=== PATIENT | female | born 1930 | race Two or more races ===

== ENCOUNTER 2016-10-03 09:47 | Inpatient (IN) | payer MEDICARE, MEDICAID ==
[~2016-10-03] VITALS: Ht 162.6 cm; Wt 90.7 kg
[2016-10-03 10:43] LABS: BASOPHILS % (AUTO) 1.6 % (0.0-2.0); LYMPHOCYTES % (AUTO) 22.1 % (20.0-45.0); MEAN CORPUSCULAR HEMOGLOBIN 27.9 PG (27.0-31.0); MEAN CORPUSCULAR HGB CONC 31.8 G/DL (32.0-36.0); MEAN CORPUSCULAR VOLUME 88 FL (80-99); MEAN PLATELET VOLUME 5.9 FL (6.5-10.1); MONOCYTES % (AUTO) 8.5 % (1.0-10.0); NEUTROPHILS % (AUTO) 60.9 % (45.0-75.0); PLATELET COUNT 369 K/UL (150-450); RED BLOOD COUNT 4.66 M/UL (4.20-5.40); RED CELL DISTRIBUTION WIDTH 12.4 % (11.6-14.8); WHITE BLOOD COUNT 8.2 K/UL (4.8-10.8)
[2016-10-03 10:57] LABS: ALANINE AMINOTRANSFERASE 13 U/L (3-33); ALBUMIN/GLOBULIN RATIO 0.8 (1.0-2.7); ANION GAP 14 (5-15); ASPARTATE AMINO TRANSFERASE 20 U/L (5-40); CALCIUM 9.2 mg/dL (8.6-10.2); CARBON DIOXIDE 27 mEQ/L (20-30); CHLORIDE 96 mEQ/L (98-107); CREATININE 1.6 mg/dL (0.5-0.9); HEMOLYSIS 7; POTASSIUM 4.2 mEQ/L (3.4-4.9); SODIUM 137 mEQ/L (135-145); TOTAL PROTEIN 7.4 g/dL (6.6-8.7)
--- NOTE | 2016-10-03 11:01 | Diagnostic Imaging Report ---
Indication: SOB Technique: One view of the chest Comparison: none Findings: There is some opacity in the left lung base, may indicate infiltrate, pleural fluid, or combination of both. The heart is enlarged. The remainder the lungs and pleural spaces are clear. Impression: Suspect left basilar opacity, possibly infiltrate, pleural fluid, or combination of both. Correlate with clinical findings Cardiomegaly
[2016-10-03] MEDS ORDERED: CATAPRES0.1 MG ORAL (11:03)
[2016-10-03] MEDS ORDERED: ATORVASTATIN CA10 MG ORAL (11:03)
[2016-10-03] MEDS ORDERED: ASPIR 8181 MG ORAL (11:03)
[2016-10-03] MEDS ORDERED: ACTOS15 MG ORAL (11:03)
[2016-10-03] MEDS ORDERED: CRANBERRY450 M4 PO (11:03)
[2016-10-03] MEDS ORDERED: DULCOLAX10 MG RC ×2 (11:03)
[2016-10-03] MEDS ORDERED: COLACE100 MG ORAL (11:03)
[2016-10-03] MEDS ORDERED: DONEPEZIL HCL10 M2 ORAL (11:03)
[2016-10-03] MEDS ORDERED: CLONIDINE1 EAC1 TD (11:03)
[2016-10-03 11:07] LABS: CKMB < 1.5 ng/mL (< 3.8)
[2016-10-03] MEDS ORDERED: PLAVIX75 MG ORAL (11:27)
[2016-10-03] MEDS ORDERED: MILK OF MA400 MG/51 ORAL (11:27)
[2016-10-03] MEDS ORDERED: NORVASC10 MG ORAL (11:27)
[2016-10-03] MEDS ORDERED: FLEET ENEMA133 M1 RC (11:27)
[2016-10-03] MEDS ORDERED: ALUM-MAG HYDRO360 ML PO (11:27)
[2016-10-03] MEDS ORDERED: TRAMADOL HCL100 M2 ORAL (11:27)
[2016-10-03] MEDS ORDERED: MULTIVITAMINS1 EAC2 ORAL (11:27)
[2016-10-03] MEDS ORDERED: OLANZAPINE2.5 MG ORAL (11:27)
[2016-10-03] MEDS ORDERED: GLIPIZIDE10 MG PO (11:27)
[2016-10-03] MEDS ORDERED: CALCIUM 250+D1 EACH PO (11:27)
[2016-10-03] MEDS ORDERED: LEVEMIR FL100 UNIT/1 SUBQ (11:27)
[2016-10-03 11:34] VITALS: BP 151/102
[2016-10-03 12:30] VITALS: BP 135/114
[2016-10-03 13:01] VITALS: BP 125/98
--- NOTE | 2016-10-03 13:02 | Emergency Room Report ---
History of Present Illness General Chief Complaint: Lower Extremity Injury Source: Medical Record, EMS, PMD Present Illness HPI [id number] sent for "blue discoloration of left big toe." Unknown trauma. Alzheimers , patient not contributing to HPI. PMD Dr Mueller concerned for DVT. Allergies: Coded Allergies: No Known Allergies (Unverified , 10/03/16) Patient History Past Medical History: dementia Past Surgical History: none Pertinent Family History: none Social History: Denies: alcohol use, drug use, smoking Last Menstrual Period: na Now: No Immunizations: UTD Reviewed Nursing Documentation: PMH: Agreed, PSxH: Agreed Nursing Documentation-PMH Past Medical History: No History, Except For Hx Diabetes: Yes History Of Psychiatric Problem: Yes - paranoid schizophrenia Review of Systems All Other Systems: limited - Alzheimers, patient non contributory Physical Exam Vital Signs Date Time Temp Pulse Resp B/P Pulse Ox O2 Delivery O2 Flow Rate FiO2 10/03/16 09:57 98.2 101 16 126/72 98 Room Air Sp02 EP Interpretation: reviewed, abnormal General Appearance: normal inspection, well appearing, no apparent distress, alert, GCS 15, non-toxic Head: normocephalic, atraumatic Eyes: bilateral eye EOMI, bilateral eye PERRL ENT: normal ENT inspection, hearing grossly normal, normal voice Neck: normal inspection, full range of motion, supple, no bony tend Respiratory: normal inspection, lungs clear, normal breath sounds, no respiratory distress, no retraction, no wheezing Cardiovascular #1: regular rate, rhythm, no edema Gastrointestinal: normal inspection, normal bowel sounds, non tender, soft, no guarding, no hernia Genitourinary: no CVA tenderness Musculoskeletal: normal inspection, back normal, normal range of motion, Murray' s Sign negative Neurologic: normal inspection, alert, responsive, speech normal Psychiatric: normal inspection, judgement/insight normal, mood/affect normal Skin: other - left foot: areas of abrasions to right toe, dorsum right foot. No cellulitis. No sign of infection. No left calf ttp Medical Decision Making Medicare Attestation I Clyde Yeung MD hereby attest that the medical record entry for date of service, 05/22/16 accurately reflects signatures/notations that I made in my capacity as MD when I treated/diagnosed the above listed Medicare beneficiary. I attest that this information is true, accurate and complete to the best of my knowledge. I understand that any falsification, omission, or concealment of material fact may subject me to administrative, civil, or criminal liability. This patient warrants hospital admission for extreme of age and has a condition that cannot be treated as outpatient. Diagnostic Impression: Primary Impression: YUDY (acute kidney injury) ER Course Afebrile. No leuks. Left toe discoloration - no fever or leuks - No clinical sign of cellulitis - Xray with osteoporosis but no osteomyelitis - ultrasound negative for DVT Left basilar PNA - ?atelectasis vs PNA left lower lobe - Patient with no clinical signs of PNA - endorsed to Dr Mueller to decide on Abx for patient Labs c/w YUDY. Dr Mueller unsure if patient with known CKD. No prior CMP done here. Will admit to med/surg for YUDY to Dr Mueller at 1pm EKG Diagnostic Results Rate: normal Rhythm: NSR ST Segments: no acute changes ASA given to the pt in ED: No Rhythm Strip Diag. Results EP Interpretation: yes Rate: 97 Rhythm: NSR, no PVC's, no ectopy Chest X-Ray Diagnostic Results EP Interpretation: Yes Findings: no effusion, no pneumothorax, no acute cardiopulmonary disease, other - Possible left base PNA Last Vital Signs Date Time Temp Pulse Resp B/P Pulse Ox O2 Delivery O2 Flow Rate FiO2 10/03/16 12:30 111 20 135/114 98 Room Air 10/03/16 11:34 98.2 Status: improved Disposition: ADMITTED INPATIENT Condition: Serious Referrals: KENDY MUELLER (PCP) CLYDE YEUNG M.D. Oct 03, 2016 13:02
--- NOTE | 2016-10-03 13:52 | Diagnostic Imaging Report ---
Indication: SOB Technique: 3 views of the toes Comparison: Findings: No acute fractures. No dislocations. No definite osteolytic lesion, due to periosteal reaction, or osseous erosions. The bones are osteoporotic. The joint spaces are preserved. Impression: No acute bony trauma No definite plain radiographic findings to suggest acute osteomyelitis. Note, however, that plain radiographs have limited sensitivity for such, particularly in the setting of osteoporotic change. Consider MRI or bone scan for further evaluation if there is high clinical suspicion
[2016-10-03] MEDS ORDERED: OLANZapine 2.5mg tab ORAL PRN (14:00)
[2016-10-03] MEDS ORDERED: Promethazine/Codeine 5ml UD ORAL PRN (14:00)
[2016-10-03] MEDS ORDERED: Morphine Sulfate 2mg/ml Inj IVP PRN (14:00)
[2016-10-03] MEDS ORDERED: Mylanta II UD 30ml ORAL PRN (14:00)
[2016-10-03] MEDS ORDERED: Zolpidem 5mg tab ORAL PRN (14:00)
[2016-10-03] MEDS ORDERED: Miralax 17gm pkt ORAL PRN (14:00)
[2016-10-03] MEDS ORDERED: LORazepam Inj 2mg/ml 1ml IV PRN (14:00)
--- NOTE | 2016-10-03 14:07 | Infectious Diseases Prog Note ---
Assessment/Plan Problems: (1) LLL pneumonia Assessment & Plan: already on vancomycin and cefepime , monitor CXR (2) YUDY (acute kidney injury) Assessment & Plan: continue fluids for hydration, monitor UOP, avoid nephrotoxic meds, consult renal service (3) Traumatic ecchymosis of toe of right foot Assessment & Plan: had X ray with no evidence of fracture , consult cafe site attendant Subjective Allergies: Coded Allergies: No Known Allergies (Unverified , 10/03/16) Objective Vital Signs Last 24 Hour Vital Signs Date Time Temp Pulse Resp B/P Pulse Ox O2 Delivery O2 Flow Rate FiO2 10/03/16 13:06 98.2 98 20 125/98 98 Room Air 10/03/16 13:01 98 20 125/98 98 Room Air 10/03/16 12:30 111 20 135/114 98 Room Air 10/03/16 11:34 98.2 104 16 151/102 98 Room Air 10/03/16 09:57 98.2 101 16 126/72 98 Room Air Height (Feet): 5 Height (Inches): 4.00 Weight (Pounds): 200 Laboratory Tests Test 10/03/16 10:20 White Blood Count 8.2 K/UL (4.8-10.8) Red Blood Count 4.66 M/UL (4.20-5.40) Hemoglobin 13.0 G/DL (12.0-16.0) Hematocrit 40.8 % (37.0-47.0) Mean Corpuscular Volume 88 FL (80-99) Mean Corpuscular Hemoglobin 27.9 PG (27.0-31.0) Mean Corpuscular Hemoglobin Concent 31.8 G/DL (32.0-36.0) L Red Cell Distribution Width 12.4 % (11.6-14.8) Platelet Count 369 K/UL (150-450) Mean Platelet Volume 5.9 FL (6.5-10.1) L Neutrophils (%) (Auto) 60.9 % (45.0-75.0) Lymphocytes (%) (Auto) 22.1 % (20.0-45.0) Monocytes (%) (Auto) 8.5 % (1.0-10.0) Eosinophils (%) (Auto) 7.0 % (0.0-3.0) H Basophils (%) (Auto) 1.6 % (0.0-2.0) Sodium Level 137 mEQ/L (135-145) Potassium Level 4.2 mEQ/L (3.4-4.9) Chloride Level 96 mEQ/L (98-107) L Carbon Dioxide Level 27 mEQ/L (20-30) Anion Gap 14 (5-15) Blood Urea Nitrogen 20 mg/dL (7-23) Creatinine 1.6 mg/dL (0.5-0.9) H Estimat Glomerular Filtration Rate mL/min (>60) Glucose Level 188 mg/dL (74-106) H Calcium Level 9.2 mg/dL (8.6-10.2) Total Bilirubin < 0.2 mg/dL (0.0-1.2) Aspartate Amino Transf (AST/SGOT) 20 U/L (5-40) Alanine Aminotransferase (ALT/SGPT) 13 U/L (3-33) Alkaline Phosphatase 92 U/L (35-104) Total Creatine Kinase 99 U/L (26-140) Creatine Kinase MB < 1.5 ng/mL (< 3.8) Creatine Kinase MB Relative Index Total Protein 7.4 g/dL (6.6-8.7) Albumin 3.4 g/dL (3.5-5.2) L Globulin 4.0 g/dL Albumin/Globulin Ratio 0.8 (1.0-2.7) L Current Medications Medications (Trade) Dose Ordered Sig/Euince Route PRN Reason Start Time Stop Time Status Last Admin Dose Admin Acetaminophen (Tylenol) 650 mg Q4H PRN ORAL fever 10/03/16 14:00 11/02/16 13:59 Al Hydroxide/Mg Hydroxide (Mylanta II) 30 ml Q6H PRN ORAL dyspepsia 10/03/16 14:00 11/02/16 13:59 Albuterol/ Ipratropium (DuoNeb 0.5-3(2.5)mg/3ml) 3 ml Q6HRT HHN 10/03/16 19:00 10/08/16 18:59 UNV Amlodipine Besylate (Norvasc) 10 mg DAILY ORAL 10/04/16 09:00 11/03/16 08:59 Aspirin (Ecotrin) 81 mg DAILY ORAL 10/04/16 09:00 11/03/16 08:59 UNV Atorvastatin Calcium (Lipitor) 10 mg BEDTIME ORAL 10/03/16 21:00 11/02/16 20:59 Bisacodyl (Dulcolax) 10 mg DAILY RECTAL 10/04/16 09:00 11/03/16 08:59 UNV Cefepime HCl/ Dextrose (Maxipime/D5W) 55 ml @ 110 mls/hr EVERY 8 HOURS IV 10/03/16 14:00 10/10/16 13:59 UNV Clonidine HCl (Catapres) 0.1 mg EVERY 8 HOURS PRN ORAL SBP>160 10/03/16 14:00 11/02/16 13:59 Clopidogrel Bisulfate (Plavix) 75 mg DAILY ORAL 10/04/16 09:00 11/03/16 08:59 UNV Dextrose (Dextrose 50%) STAT PRN IV Hypoglycemia 10/03/16 14:00 11/02/16 13:59 Donepezil HCl (Aricept) 10 mg QHS ORAL 10/03/16 21:00 11/02/16 20:59 Heparin Sodium (Porcine) (Heparin 5000 units/ml) 5,000 units EVERY 12 HOURS SUBQ 10/03/16 21:00 11/02/16 20:59 Insulin Aspart (NovoLOG) BEFORE MEALS AND HS SUBQ 10/03/16 16:30 11/02/16 16:29 UNV Lorazepam (Ativan 2mg/ml 1ml) 0.5 mg Q4H PRN IV For Anxiety 10/03/16 14:00 10/10/16 13:59 Morphine Sulfate (Morphine Sulfate) 1 mg EVERY 4 HOURS PRN IVP For Pain 10/03/16 14:00 10/10/16 13:59 UNV Olanzapine (ZyPREXA) 1.25 mg DAILY PRN ORAL Schizophrenia 10/03/16 14:00 11/02/16 13:59 UNV Ondansetron HCl (Zofran) 4 mg Q6H PRN IVP Nausea & Vomiting 10/03/16 14:00 11/02/16 13:59 Polyethylene Glycol (Miralax) 17 gm HSPRN PRN ORAL Constipation 10/03/16 14:00 11/02/16 13:59 Promethazine HCl/ Codeine (Phenergan with Codeine) 5 ml Q4H PRN ORAL For Cough 10/03/16 14:00 11/02/16 13:59 Vancomycin HCl 1 ea 1 ea DAILY PRN MISC Per rx protocol 10/03/16 14:00 11/02/16 13:59 UNV Zolpidem Tartrate (Ambien) 5 mg HSPRN PRN ORAL Insomnia 10/03/16 14:00 11/02/16 13:59 Ryne Vieira M.D. Oct 03, 2016 14:07
[2016-10-03 16:00] VITALS: BP 128/85
[2016-10-03] MEDS: Cefepime HCl 1 GM in D5W 55 ML IV SCH (16:48)
[2016-10-03] MEDS: NovoLOG Insulin Flexpen SUBQ SCH ×2 (17:04→21:23)
[2016-10-03 17:06] LABS: APPEARANCE,URINE SLIGHTLY CLOUDY; KETONES,URINE NEGATIVE (NEGATIVE); LEUKOCYTE ESTERASE ,URINE 3+ (NEGATIVE); NITRITE,URINE NEGATIVE (NEGATIVE); PH,URINE 7 (4.5-8.0); PROTEIN,URINE 2+ (NEGATIVE); UROBILINOGEN,URINE NORMAL MG/DL (0.0-1.0)
[2016-10-03 17:16] LABS: ALANINE AMINOTRANSFERASE 13 U/L (3-33); ANION GAP 17 (5-15); ASPARTATE AMINO TRANSFERASE 20 U/L (5-40); CALCIUM 9.1 mg/dL (8.6-10.2); CARBON DIOXIDE 24 mEQ/L (20-30); CHLORIDE 97 mEQ/L (98-107); CREATININE 1.6 mg/dL (0.5-0.9); HEMOLYSIS 4; PHOSPHORUS 3.9 mg/dL (2.5-4.8); POTASSIUM 4.4 mEQ/L (3.4-4.9); SODIUM 138 mEQ/L (135-145); TOTAL PROTEIN 6.8 g/dL (6.6-8.7); URIC ACID 6.5 mg/dL (3.0-7.5)
[2016-10-03 17:23] LABS: SQUAMOUS EPITHELIAL CELL,UR FEW /LPF (NONE/OCC)
[2016-10-03 17:24] LABS: AMORPHOUS SEDIMENT,UR FEW /LPF; BACTERIA,URINE MODERATE /HPF
[2016-10-03 17:28] LABS: THYROID STIMULATING HORMONE 0.508 uIU/mL (0.300-4.500)
[2016-10-03] MEDS: Vancomycin 1.5 GM/D5W 325 ML IVPB SCH ×2 (18:12)
--- NOTE | 2016-10-03 18:35 | Consultation ---
History of Present Illness General Date patient seen: Oct 03, 2016 Chief Complaint: Lower Extremity Injury Referring physician: Dr. Haddad Reason for Consultation: LLL infiltrate Present Illness HPI 86 year old female with hx of dementia, CAD, brought in to ER with CC of right toe discoloration and concern for dvt. Her cxr showed that she has LLL infiltrate. Pt is demented and doesn;t have any complains. Seems awake and comfortable Allergies: Coded Allergies: No Known Allergies (Unverified , 10/03/16) Medication History Scheduled Amlodipine Besylate (Norvasc), 10 MG ORAL DAILY, (Reported) Aspirin* (Aspir 81*), 81 MG ORAL DAILY, (Reported) Atorvastatin Calcium* (Lipitor*), 10 MG ORAL BEDTIME, (Reported) Bisacodyl (Dulcolax), 10 MG RC DAILY, (Reported) Calcium Carbonate/Vitamin D3 (Calcium 250+D Tablet), 1 EACH PO DAILY, (Reported) Clopidogrel Bisulfate* (Plavix*), 75 MG ORAL q 5 pm , (Reported) Donepezil Hcl* (Donepezil Hcl*), 10 MG ORAL HS, (Reported) Glipizide (Glipizide), 5 MG PO BEFORE BREAKFAST, (Reported) Insulin Detemir (Levemir Flexpen), 15 UNIT SUBQ BEFORE BREAKFAST, (Reported) Magnesium Hydroxide* (Milk Of Magnesia*), 30 ML ORAL HS, (Reported) Multivitamins* (Multivitamins*), 1 TAB ORAL DAILY, (Reported) Na Phos,M-B/Na Phos,Di-Ba (Fleet Enema), 133 ML RC DAILY, (Reported) Pioglitazone Hcl* (Actos*), 15 MG ORAL TID, (Reported) Scheduled PRN Clonidine Hcl* (Catapres*), 0.1 MG ORAL EVERY 8 HOURS PRN for For High Blood Pressure, (Reported) Docusate Sodium* (Colace*), 100 MG ORAL TWICE A DAY PRN for stool, (Reported) Mag Hydrox/Al Hydrox/Simeth (Alum-Mag Hydroxide-Simeth Liq), 30 ML PO for gi upset, (Reported) Olanzapine (Olanzapine), 1.25 MG ORAL DAILY PRN for Schizophrenia, (Reported) Tramadol Hcl (Tramadol Hcl), 50 MG ORAL Q6HR PRN for severe pain (8-10), ( Reported) Miscellaneous Medications Bisacodyl (Dulcolax), 10 MG RC, (Reported) Cranberry Fruit Concentrate (Cranberry), 450 MG PO, (Reported) Discontinued Medications Clonidine (Clonidine), 1 EACH TD, (Reported) Discontinued Reason: Therapy completed Patient History Healthcare decision maker NICHOLAS JOSE F Resuscitation status Full Code Advanced Directive on File Past Medical/Surgical History Past Medical/Surgical History: (1) Dementia (2) Diabetes mellitus (3) Hypertension Review of Systems All Other Systems: negative except mentioned in HPI Physical Exam General Appearance: WD/WN Lines, tubes and drains: peripheral HEENT: normocephalic, atraumatic Neck: non-tender, normal alignment Respiratory/Chest: chest wall non-tender, lungs clear Breasts: no masses Cardiovascular/Chest: normal peripheral pulses, normal rate Abdomen: normal bowel sounds Extremities: other Last 24 Hour Vital Signs Date Time Temp Pulse Resp B/P Pulse Ox O2 Delivery O2 Flow Rate FiO2 10/03/16 16:00 97.5 97 18 128/85 99 Room Air 10/03/16 13:06 98.2 98 20 125/98 98 Room Air 10/03/16 13:01 98 20 125/98 98 Room Air 10/03/16 12:30 111 20 135/114 98 Room Air 10/03/16 11:34 98.2 104 16 151/102 98 Room Air 10/03/16 09:57 98.2 101 16 126/72 98 Room Air Laboratory Tests Test 10/03/16 10:20 10/03/16 16:15 10/03/16 16:20 White Blood Count 8.2 K/UL (4.8-10.8) Red Blood Count 4.66 M/UL (4.20-5.40) Hemoglobin 13.0 G/DL (12.0-16.0) Hematocrit 40.8 % (37.0-47.0) Mean Corpuscular Volume 88 FL (80-99) Mean Corpuscular Hemoglobin 27.9 PG (27.0-31.0) Mean Corpuscular Hemoglobin Concent 31.8 G/DL (32.0-36.0) L Red Cell Distribution Width 12.4 % (11.6-14.8) Platelet Count 369 K/UL (150-450) Mean Platelet Volume 5.9 FL (6.5-10.1) L Neutrophils (%) (Auto) 60.9 % (45.0-75.0) Lymphocytes (%) (Auto) 22.1 % (20.0-45.0) Monocytes (%) (Auto) 8.5 % (1.0-10.0) Eosinophils (%) (Auto) 7.0 % (0.0-3.0) H Basophils (%) (Auto) 1.6 % (0.0-2.0) Sodium Level 137 mEQ/L (135-145) 138 mEQ/L (135-145) Potassium Level 4.2 mEQ/L (3.4-4.9) 4.4 mEQ/L (3.4-4.9) Chloride Level 96 mEQ/L (98-107) L 97 mEQ/L (98-107) L Carbon Dioxide Level 27 mEQ/L (20-30) 24 mEQ/L (20-30) Anion Gap 14 (5-15) 17 (5-15) H Blood Urea Nitrogen 20 mg/dL (7-23) 19 mg/dL (7-23) Creatinine 1.6 mg/dL (0.5-0.9) H 1.6 mg/dL (0.5-0.9) H Estimat Glomerular Filtration Rate mL/min (>60) mL/min (>60) Glucose Level 188 mg/dL (74-106) H 196 mg/dL (74-106) H Calcium Level 9.2 mg/dL (8.6-10.2) 9.1 mg/dL (8.6-10.2) Total Bilirubin < 0.2 mg/dL (0.0-1.2) < 0.2 mg/dL (0.0-1.2) Aspartate Amino Transf (AST/SGOT) 20 U/L (5-40) 20 U/L (5-40) Alanine Aminotransferase (ALT/SGPT) 13 U/L (3-33) 13 U/L (3-33) Alkaline Phosphatase 92 U/L (35-104) 88 U/L (35-104) Total Creatine Kinase 99 U/L (26-140) Creatine Kinase MB < 1.5 ng/mL (< 3.8) Creatine Kinase MB Relative Index Total Protein 7.4 g/dL (6.6-8.7) 6.8 g/dL (6.6-8.7) Albumin 3.4 g/dL (3.5-5.2) L 3.4 g/dL (3.5-5.2) L Globulin 4.0 g/dL 3.4 g/dL Albumin/Globulin Ratio 0.8 (1.0-2.7) L 1.0 (1.0-2.7) Plasma/Serum Osmolality Pending Uric Acid 6.5 mg/dL (3.0-7.5) Phosphorus Level 3.9 mg/dL (2.5-4.8) Magnesium Level 2.0 mg/dL (1.7-2.5) Thyroid Stimulating Hormone (TSH) 0.508 uIU/mL (0.300-4.500) Free Thyroxine 1.29 ng/dL (0.86-1.85) Free Triiodothyronine Pending Cortisol Pending Urine Color Pale yellow Urine Appearance Slightly cloudy Urine pH 7 (4.5-8.0) Urine Specific [place] 1.010 (1.005-1.035) Urine Protein 2+ (NEGATIVE) H Urine Glucose (UA) Negative (NEGATIVE) Urine Ketones Negative (NEGATIVE) Urine Occult Blood 3+ (NEGATIVE) H Urine Nitrite Negative (NEGATIVE) Urine Bilirubin Negative (NEGATIVE) Urine Urobilinogen Normal MG/DL (0.0-1.0) Urine Leukocyte Esterase 3+ (NEGATIVE) H Urine RBC 5-10 /HPF (0 - 2) H Urine WBC 10-15 /HPF (0 - 2) H Urine Squamous Epithelial Cells Few /LPF (NONE/OCC) Urine Amorphous Sediment Few /LPF (NONE) H Urine Bacteria Moderate /HPF (NONE) H Urine Eosinophils None seen Urine Osmolality Pending Urine Random Sodium 60 mmol/L Urine Random Chloride 56 mmol/L Urine Potassium Timed 32 mmol/L Height (Feet): 5 Height (Inches): 4.00 Weight (Pounds): 200 Medications Current Medications Medications (Trade) Dose Ordered Sig/Eunice Route PRN Reason Start Time Stop Time Status Last Admin Dose Admin Acetaminophen (Tylenol) 650 mg Q4H PRN ORAL fever 10/03/16 14:00 11/02/16 13:59 Al Hydroxide/Mg Hydroxide (Mylanta II) 30 ml Q6H PRN ORAL dyspepsia 10/03/16 14:00 11/02/16 13:59 Albuterol/ Ipratropium (DuoNeb 0.5-3(2.5)mg/3ml) 3 ml Q6HRT HHN 10/03/16 19:00 10/08/16 18:59 Amlodipine Besylate (Norvasc) 10 mg DAILY ORAL 10/04/16 09:00 11/03/16 08:59 Aspirin (Ecotrin) 81 mg DAILY ORAL 10/04/16 09:00 11/03/16 08:59 Atorvastatin Calcium (Lipitor) 10 mg BEDTIME ORAL 10/03/16 21:00 11/02/16 20:59 Bisacodyl (Dulcolax) 10 mg DAILY PRN RECTAL Constipation 10/04/16 09:00 11/03/16 08:59 Cefepime HCl/ Dextrose (Maxipime/D5W) 55 ml @ 110 mls/hr Q24H IV 10/03/16 16:00 10/10/16 15:59 10/03/16 16:48 Clonidine HCl (Catapres) 0.1 mg EVERY 8 HOURS PRN ORAL SBP>160 10/03/16 14:00 11/02/16 13:59 Clopidogrel Bisulfate (Plavix) 75 mg DAILY ORAL 10/04/16 09:00 11/03/16 08:59 Dextrose STAT PRN IV Hypoglycemia 10/03/16 14:00 11/02/16 13:59 Donepezil HCl (Aricept) 10 mg QHS ORAL 10/03/16 21:00 11/02/16 20:59 Heparin Sodium (Porcine) (Heparin 5000 units/ml) 5,000 units EVERY 12 HOURS SUBQ 10/03/16 21:00 11/02/16 20:59 Insulin Aspart (NovoLOG) BEFORE MEALS AND HS SUBQ 10/03/16 16:30 11/02/16 16:29 10/03/16 17:04 Lorazepam (Ativan 2mg/ml 1ml) 0.5 mg Q4H PRN IV For Anxiety 10/03/16 14:00 10/10/16 13:59 Morphine Sulfate (Morphine Sulfate) 1 mg EVERY 4 HOURS PRN IVP For Pain 10/03/16 14:00 10/10/16 13:59 Olanzapine (ZyPREXA) 1.25 mg DAILY PRN ORAL Schizophrenia 10/03/16 14:00 11/02/16 13:59 Ondansetron HCl (Zofran) 4 mg Q6H PRN IVP Nausea & Vomiting 10/03/16 14:00 11/02/16 13:59 Polyethylene Glycol (Miralax) 17 gm HSPRN PRN ORAL Constipation 10/03/16 14:00 11/02/16 13:59 Promethazine HCl/ Codeine (Phenergan with Codeine) 5 ml Q4H PRN ORAL For Cough 10/03/16 14:00 11/02/16 13:59 Vancomycin HCl 1 ea 1 ea DAILY PRN MISC Per rx protocol 10/03/16 14:00 11/02/16 13:59 Vancomycin HCl/ Dextrose (Vancomycin/D5W) 325 ml @ 162.5 mls/ hr DAILY@1700 IVPB 10/03/16 17:00 10/08/16 16:59 10/03/16 18:12 Zolpidem Tartrate (Ambien) 5 mg HSPRN PRN ORAL Insomnia 10/03/16 14:00 11/02/16 13:59 Assessment/Plan Problem List: (1) LLL pneumonia ICD Codes: J18.1 - Lobar pneumonia, unspecified organism SNOMED: 952847011 (2) UTI (urinary tract infection) ICD Codes: N39.0 - Urinary tract infection, site not specified SNOMED: 78386447 (3) Traumatic ecchymosis of toe of right foot ICD Codes: S90.121A - Contusion of right lesser toe(s) without damage to nail, initial encounter SNOMED: 57714612 (4) Hypertension ICD Codes: I10 - Essential (primary) hypertension SNOMED: 78603746 (5) Diabetes mellitus ICD Codes: E11.9 - Type 2 diabetes mellitus without complications SNOMED: 13594093 (6) Dementia ICD Codes: F03.90 - Unspecified dementia without behavioral disturbance SNOMED: 14774942 Assessment/Plan respiratory treatment IV antibiotics chest pt titrate fio2 to sat of 92% sputum cultures venous doppler of legs podiatry evaluation MINAL FREEMAN Oct 03, 2016 18:35
[2016-10-03] MEDS: DuoNeb 0.5-3(2.5)mg/3ml neb HHN SCH (19:00)
--- NOTE | 2016-10-03 19:11 | Consultation ---
Consult Note Consult Note PODIATRY CONSULTATION CONSULTING PHYSICIAN: Thiago Martin DPM covering for Robert Morelos DPM REASON FOR CONSULT: Left foot injury DATE OF CONSULT: 10/03/16 HISTORY OF PRESENT ILLNESS: Patient is able to communicate but is not a good historian. Therefore, some of the history was obtained from reviewing the chart. Patient does mention that she experienced a fall which led to the bruising noted on the left foot. She is currently on anticoagulation medication. Patient states some pain with attempted ambulation. However, she is not in any pain currently. She is a resident of a [facility]. No other pedal complaints at this time. No nausea, vomiting, fevers, or chills reported. ALLERGIES: No known PAST MEDICAL HISTORY: HTN, T2DM, dementia, psych history, GERD SOCIAL HISTORY: Denies current tobacco, alcohol, or illicit drug use. She is a resident of [facility] SURGICAL AND FAMILY HISTORY: Non contributory ANTIBIOTICS: Vancomycin and Cefepime. Please refer to chart for all other medications Last 24 Hour Vital Signs Date Time Temp Pulse Resp B/P Pulse Ox O2 Delivery O2 Flow Rate FiO2 10/03/16 16:00 97.5 97 18 128/85 99 Room Air 10/03/16 13:06 98.2 98 20 125/98 98 Room Air 10/03/16 13:01 98 20 125/98 98 Room Air 10/03/16 12:30 111 20 135/114 98 Room Air 10/03/16 11:34 98.2 104 16 151/102 98 Room Air 10/03/16 09:57 98.2 101 16 126/72 98 Room Air Laboratory Tests Test 10/03/16 10:20 10/03/16 16:15 10/03/16 16:20 White Blood Count 8.2 K/UL (4.8-10.8) Red Blood Count 4.66 M/UL (4.20-5.40) Hemoglobin 13.0 G/DL (12.0-16.0) Hematocrit 40.8 % (37.0-47.0) Mean Corpuscular Volume 88 FL (80-99) Mean Corpuscular Hemoglobin 27.9 PG (27.0-31.0) Mean Corpuscular Hemoglobin Concent 31.8 G/DL (32.0-36.0) L Red Cell Distribution Width 12.4 % (11.6-14.8) Platelet Count 369 K/UL (150-450) Mean Platelet Volume 5.9 FL (6.5-10.1) L Neutrophils (%) (Auto) 60.9 % (45.0-75.0) Lymphocytes (%) (Auto) 22.1 % (20.0-45.0) Monocytes (%) (Auto) 8.5 % (1.0-10.0) Eosinophils (%) (Auto) 7.0 % (0.0-3.0) H Basophils (%) (Auto) 1.6 % (0.0-2.0) Sodium Level 137 mEQ/L (135-145) 138 mEQ/L (135-145) Potassium Level 4.2 mEQ/L (3.4-4.9) 4.4 mEQ/L (3.4-4.9) Chloride Level 96 mEQ/L (98-107) L 97 mEQ/L (98-107) L Carbon Dioxide Level 27 mEQ/L (20-30) 24 mEQ/L (20-30) Anion Gap 14 (5-15) 17 (5-15) H Blood Urea Nitrogen 20 mg/dL (7-23) 19 mg/dL (7-23) Creatinine 1.6 mg/dL (0.5-0.9) H 1.6 mg/dL (0.5-0.9) H Estimat Glomerular Filtration Rate mL/min (>60) mL/min (>60) Glucose Level 188 mg/dL (74-106) H 196 mg/dL (74-106) H Calcium Level 9.2 mg/dL (8.6-10.2) 9.1 mg/dL (8.6-10.2) Total Bilirubin < 0.2 mg/dL (0.0-1.2) < 0.2 mg/dL (0.0-1.2) Aspartate Amino Transf (AST/SGOT) 20 U/L (5-40) 20 U/L (5-40) Alanine Aminotransferase (ALT/SGPT) 13 U/L (3-33) 13 U/L (3-33) Alkaline Phosphatase 92 U/L (35-104) 88 U/L (35-104) Total Creatine Kinase 99 U/L (26-140) Creatine Kinase MB < 1.5 ng/mL (< 3.8) Creatine Kinase MB Relative Index Total Protein 7.4 g/dL (6.6-8.7) 6.8 g/dL (6.6-8.7) Albumin 3.4 g/dL (3.5-5.2) L 3.4 g/dL (3.5-5.2) L Globulin 4.0 g/dL 3.4 g/dL Albumin/Globulin Ratio 0.8 (1.0-2.7) L 1.0 (1.0-2.7) Plasma/Serum Osmolality Pending Uric Acid 6.5 mg/dL (3.0-7.5) Phosphorus Level 3.9 mg/dL (2.5-4.8) Magnesium Level 2.0 mg/dL (1.7-2.5) Thyroid Stimulating Hormone (TSH) 0.508 uIU/mL (0.300-4.500) Free Thyroxine 1.29 ng/dL (0.86-1.85) Free Triiodothyronine Pending Cortisol Pending Urine Color Pale yellow Urine Appearance Slightly cloudy Urine pH 7 (4.5-8.0) Urine Specific [place] 1.010 (1.005-1.035) Urine Protein 2+ (NEGATIVE) H Urine Glucose (UA) Negative (NEGATIVE) Urine Ketones Negative (NEGATIVE) Urine Occult Blood 3+ (NEGATIVE) H Urine Nitrite Negative (NEGATIVE) Urine Bilirubin Negative (NEGATIVE) Urine Urobilinogen Normal MG/DL (0.0-1.0) Urine Leukocyte Esterase 3+ (NEGATIVE) H Urine RBC 5-10 /HPF (0 - 2) H Urine WBC 10-15 /HPF (0 - 2) H Urine Squamous Epithelial Cells Few /LPF (NONE/OCC) Urine Amorphous Sediment Few /LPF (NONE) H Urine Bacteria Moderate /HPF (NONE) H Urine Eosinophils None seen Urine Osmolality Pending Urine Random Sodium 60 mmol/L Urine Random Chloride 56 mmol/L Urine Potassium Timed 32 mmol/L PHYSCIAL EXAM: DERM: Left foot ecchymosis noted at the hallux as well as the base of toes 2 and 3. Thick and discolored toenails bilaterally NEURO: Decreased sensation to light touch MSK: Mild pain with palpation at the area of left foot bruising VASC: Pedal pulses lightly palpable. Bilateral lower extremity non pitting edema IMAGING: Procedure: XRAY Toes 3v L Indication: SOB Technique: 3 views of the toes Comparison: Findings: No acute fractures. No dislocations. No definite osteolytic lesion, due to periosteal reaction, or osseous erosions. The bones are osteoporotic. The joint spaces are preserved. Impression: No acute bony trauma No definite plain radiographic findings to suggest acute osteomyelitis. Note, however, that plain radiographs have limited sensitivity for such, particularly in the setting of osteoporotic change. Consider MRI or bone scan for further evaluation if there is high clinical suspicion . Assessment/Plan Left foot contusion with history of fall. Patient is on anticoagulation therapy. Radiograph negative for acute fracture. monitor for improvement. Okay to discharge patient from podiatry standpoint. Thiago Martin DPM Oct 03, 2016 19:11
[2016-10-03 20:00] VITALS: BP 176/90
[2016-10-03] MEDS: Donepezil 10mg tab ORAL SCH (21:20)
[2016-10-03] MEDS: Heparin 5000 units/ml inj SUBQ SCH (21:24)
--- NOTE | 2016-10-03 21:48 | Consultation ---
DATE OF CONSULTATION: 10/03/2016 INFECTIOUS DISEASES CONSULTATION: CONSULTING PHYSICIAN: Ryne Vieira M.D. REQUESTING PHYSICIAN: Alverto Haddad M.D. REASON FOR CONSULTATION: Left foot trauma with blue discoloration of the left big toe, rule out infectious etiology. HISTORY OF PRESENT ILLNESS: The patient is an 86-year-old female, who was sent from convalescent home for blue discoloration of the left big toe. The patient had a trauma, unclear how it happened and developed bluish discoloration of her big toe. She is able to bend her toe and moves her other toes with no restriction. No evidence of gangrenous change or ulceration or necrosis at this point. The patient was admitted to the hospital for concern of gangrene of the left big toe, possible infection, and to rule out DVT and I was consulted by Dr. Haddad for antibiotics recommendation and further management. As of note, the patient is a poor historian, cannot provide any history. History was mainly obtained from the medical records. PAST MEDICAL HISTORY: Significant for dementia, diabetes, and schizophrenia. PAST SURGICAL HISTORY: Negative. FAMILY HISTORY: Unable to obtain. SOCIAL HISTORY: Unable to obtain. ALLERGIES: She has no known drug allergy. MEDICATIONS: She was started on vancomycin and cefepime by the admitting physician. PHYSICAL EXAMINATION: VITAL SIGNS: Temperature is 98.2 degrees, pulse 98, respirations 20, blood pressure 125/98, and saturation 98% on room air. GENERAL: This is an elderly female, lying in bed, Danish speaker, awake, alert, and not in distress, and demented. HEENT: Normocephalic and atraumatic. Pupils are reactive to light equally. Pale sclerae. Dry oral mucosa. No exudate. NECK: Supple. No lymphadenopathy. CARDIOVASCULAR: Regular rate and rhythm. No murmur or gallop. LUNGS: She had diminished breathing sound on the bases with crackles on the left lower lobe. ABDOMEN: Soft, nontender, and nondistended. Positive bowel sounds. Obese. No organomegaly. EXTREMITIES: No edema or cyanosis. Purple discoloration with ecchymosis of the left big toe in the left front foot. No gangrenous changes or ulceration. Pulse is palpable in the distal pedal area, +1 in both feet. LABORATORY DATA: Labs showed white count of 8.2, hemoglobin of 13, platelet count of 369,000, BUN 20, creatinine 1.6, AST 20, and ALT 15. IMAGING DATA: X-ray of the left foot showed no acute bony trauma. No definite plain radiographic findings to suggest acute osteomyelitis. Chest x-ray showed left basilar opacity, possibly infiltrate, pleural fluid or combination of both, correlate with clinical findings. ASSESSMENT AND PLAN: 1. Left lower lobe pneumonia. Continue vancomycin and cefepime. Empiric treatment for now. Monitor chest x-ray. 2. Left big toe and ecchymosis due to trauma. X-ray did not show an acute fracture or pathology. Continue pain management as per the primary provider. Consult gymnastics instructor. 3. Acute renal failure due to dehydration. Continue fluids. Monitor urine output. Avoid nephrotoxic medications. Consult renal service. 4. Dementia. Recommend supportive care. Ryne Vieira M.D. DR: Ryan JOB#: [id number] CC:
[2016-10-04] VITALS (8 sets, daily range): BP systolic 113–159; BP diastolic 62–98
[2016-10-04] MEDS: DuoNeb 0.5-3(2.5)mg/3ml neb HHN SCH ×4 (00:11→20:49)
--- NOTE | 2016-10-04 00:38 | History and Physical Report ---
DATE OF ADMISSION: 10/03/2016 TIME OF EVALUATION: At 3 p.m. ATTENDING PHYSICIAN: Alverto Haddad D.O. CONSULTANTS: 1. Mary Mims M.D. 2. Ryne Vieira M.D. 3. Bubba Millan M.D. 4. Robert Morelos D.P.M. 5. Don Coronado M.D. CHIEF COMPLAINT: Left toe wound cellulitis, increased weakness, and shortness of breath. BRIEF HISTORY: This 86-year-old female from [facility] presented with the above-mentioned diagnoses. Diagnoses of left toe cellulitis and wound, YUDY, pneumonia, sepsis, encephalopathy and admitted to medical floor for further treatment. Currently, calm, confused in bed, not talking much. PAST MEDICAL HISTORY: Includes confusion, hypercholesterolemia, hypertension, and diabetes. PAST SURGICAL HISTORY: Unknown. ALLERGIES: Denies. MEDICATIONS: Norvasc, Ecotrin, Dulcolax, Plavix, Lipitor, Aricept, DuoNeb, NovoLog, cefepime, Catapres, Zyprexa, Tylenol, morphine, MiraLAX, and Zofran. SOCIAL HISTORY: No smoking. No alcohol. No intravenous drug abuse. FAMILY HISTORY: Noncontributory. REVIEW OF SYSTEMS: Not available. PHYSICAL EXAMINATION: GENERAL: Calm in bed, confused, oriented x1, in no acute distress. VITAL SIGNS: Temperature 98, pulse 98, respiratory rate 20, and blood pressure 125/98. CARDIOVASCULAR: No murmur. LUNGS: Distant and clear. ABDOMEN: Bowel sounds positive. Nontender and nondistended. EXTREMITIES: No clubbing, cyanosis, or edema. Left toe area slightly bruised, slightly sore. NEUROLOGIC: The patient moves all extremities, but slight weakness noted. LABORATORY DATA: CBC is normal. BMP shows chloride 96, creatinine 1.6, glucose 188, and albumin 3.4. ASSESSMENT: 1. Left toe wound cellulitis. 2. Acute kidney injury. 3. Hypertension. 4. Hypercholesterolemia. 5. Diabetes. 6. Pneumonia. 7. Sepsis. 8. Encephalopathy. PLAN: Wound care. Antibiotics per Infectious Diseases. Blood pressure and blood sugar control. Dietary followup. Psychiatric treatment. Resume home medications. OT/PT. Dietary evaluation. CBC and BMP in the morning. We will continue to follow this patient medically. Dr. Vieira, Dr. Mims, Dr. Millan, Dr. Morelos, Dr. Coronado, and Dr. Chase to consult. Alverto Haddad D.O. DR: NEIL JOB#: [id number] CC:
[2016-10-04] MEDS: NovoLOG Insulin Flexpen SUBQ SCH ×4 (06:02→20:18)
[2016-10-04 07:07] LABS: BASOPHILS % (AUTO) 1.6 % (0.0-2.0); EOSINOPHILS % (AUTO) 8.8 % (0.0-3.0); MEAN CORPUSCULAR HEMOGLOBIN 28.9 PG (27.0-31.0); MEAN CORPUSCULAR HGB CONC 32.8 G/DL (32.0-36.0); MEAN CORPUSCULAR VOLUME 88 FL (80-99); MEAN PLATELET VOLUME 5.8 FL (6.5-10.1); MONOCYTES % (AUTO) 7.3 % (1.0-10.0); NEUTROPHILS % (AUTO) 61.3 % (45.0-75.0); PLATELET COUNT 326 K/UL (150-450); RED BLOOD COUNT 4.64 M/UL (4.20-5.40); RED CELL DISTRIBUTION WIDTH 12.2 % (11.6-14.8); WHITE BLOOD COUNT 7.6 K/UL (4.8-10.8)
[2016-10-04 07:13] LABS: HEMOGLOBIN A1C 7.9 % (< 6.0)
[2016-10-04 07:35] LABS: THYROID STIMULATING HORMONE 0.752 uIU/mL (0.300-4.500)
[2016-10-04 07:36] LABS: ALANINE AMINOTRANSFERASE 13 U/L (3-33); ALBUMIN/GLOBULIN RATIO 0.8 (1.0-2.7); ANION GAP 15 (5-15); ASPARTATE AMINO TRANSFERASE 18 U/L (5-40); CALCIUM 9.4 mg/dL (8.6-10.2); CARBON DIOXIDE 27 mEQ/L (20-30); CHLORIDE 97 mEQ/L (98-107); CHOLESTEROL 143 mg/dL (< 200); CREATININE 1.6 mg/dL (0.5-0.9); HEMOLYSIS 8; LDL CHOLESTEROL (CALC.) 46 mg/dL (60-99); POTASSIUM 4.3 mEQ/L (3.4-4.9); SODIUM 139 mEQ/L (135-145); TOTAL PROTEIN 7.6 g/dL (6.6-8.7)
[2016-10-04 08:11] LABS: CORTISOL LC 10.2 ug/dL (.); FREE TRIIODOTHYRONINE 2.9 pg/mL (2.0-4.4)
[2016-10-04] MEDS: Aspirin EC 81mg tab ORAL SCH (09:01)
[2016-10-04] MEDS: Heparin 5000 units/ml inj SUBQ SCH ×2 (09:14→20:19)
--- NOTE | 2016-10-04 12:29 | Infectious Diseases Prog Note ---
Assessment/Plan Problems: (1) LLL pneumonia Assessment & Plan: continue vancomycin and cefepime , monitor CXR (2) YUDY (acute kidney injury) Assessment & Plan: continue fluids for hydration, monitor UOP, avoid nephrotoxic meds, consult renal service (3) Traumatic ecchymosis of toe of right foot Assessment & Plan: had X ray with no evidence of fracture , consult court bailiff or sheriff (4) UTI (urinary tract infection) Assessment & Plan: with gram negative rods, on cefepime already, await culture Subjective Constitutional: Reports: no symptoms HEENT: Reports: no symptoms Respiratory: Reports: no symptoms Cardiovascular: Reports: no symptoms Gastrointestinal/Abdominal: Reports: no symptoms Genitourinary: Reports: no symptoms Neurologic: Reports: no symptoms Psychiatric: Reports: no symptoms Skin: Reports: no symptoms Endocrine: Reports: no symptoms Allergies: Coded Allergies: No Known Allergies (Unverified , 10/03/16) Objective Vital Signs Last 24 Hour Vital Signs Date Time Temp Pulse Resp B/P Pulse Ox O2 Delivery O2 Flow Rate FiO2 10/04/16 12:00 97.0 95 18 113/62 95 Room Air 10/04/16 09:10 103 133/80 10/04/16 08:36 95 18 98 Room Air 10/04/16 08:34 95 18 98 Room Air 10/04/16 08:34 21 10/04/16 08:32 92 18 Room Air 10/04/16 08:16 97.7 89 20 159/84 97 Room Air 10/04/16 08:00 97.7 89 20 159/84 97 Room Air 10/04/16 04:00 97.0 88 18 140/77 97 Room Air 10/04/16 00:12 Room Air 21 10/04/16 00:11 Room Air 21 10/04/16 00:00 97.7 96 18 149/66 96 Room Air 10/03/16 22:46 176/90 10/03/16 21:28 105 20 Room Air 21 10/03/16 21:28 109 20 98 Room Air 21 10/03/16 21:27 105 20 96 Room Air 21 10/03/16 20:00 97.7 106 18 176/90 95 Room Air 10/03/16 16:00 97.5 97 18 128/85 99 Room Air 10/03/16 13:06 98.2 98 20 125/98 98 Room Air 10/03/16 13:01 98 20 125/98 98 Room Air 10/03/16 12:30 111 20 135/114 98 Room Air Height (Feet): 5 Height (Inches): 4.00 Weight (Pounds): 200 General Appearance: WD/WN, no acute distress HEENT: normocephalic, atraumatic, anicteric, mucous membranes moist Respiratory/Chest: chest wall non-tender, lungs clear, normal breath sounds, no respiratory distress, no accessory muscle use Cardiovascular: normal peripheral pulses, normal rate, regular rhythm, no gallop/murmur Abdomen: normal bowel sounds, soft, non tender, no organomegaly, non distended , no mass Extremities: no cyanosis, no clubbing Skin: no rash, no lesions Microbiology Date/Time Source Procedure Growth Status 10/03/16 16:20 Urine,Clean Catch Urine Culture - Preliminary Gram Negative Bacillus 1 Resulted Laboratory Tests Test 10/03/16 16:15 10/03/16 16:20 10/04/16 04:40 Sodium Level 138 mEQ/L (135-145) 139 mEQ/L (135-145) Potassium Level 4.4 mEQ/L (3.4-4.9) 4.3 mEQ/L (3.4-4.9) Chloride Level 97 mEQ/L (98-107) L 97 mEQ/L (98-107) L Carbon Dioxide Level 24 mEQ/L (20-30) 27 mEQ/L (20-30) Anion Gap 17 (5-15) H 15 (5-15) Blood Urea Nitrogen 19 mg/dL (7-23) 25 mg/dL (7-23) H Creatinine 1.6 mg/dL (0.5-0.9) H 1.6 mg/dL (0.5-0.9) H Estimat Glomerular Filtration Rate mL/min (>60) mL/min (>60) Glucose Level 196 mg/dL (74-106) H 166 mg/dL (74-106) H Plasma/Serum Osmolality Pending Uric Acid 6.5 mg/dL (3.0-7.5) Calcium Level 9.1 mg/dL (8.6-10.2) 9.4 mg/dL (8.6-10.2) Phosphorus Level 3.9 mg/dL (2.5-4.8) Magnesium Level 2.0 mg/dL (1.7-2.5) Total Bilirubin < 0.2 mg/dL (0.0-1.2) 0.2 mg/dL (0.0-1.2) Aspartate Amino Transf (AST/SGOT) 20 U/L (5-40) 18 U/L (5-40) Alanine Aminotransferase (ALT/SGPT) 13 U/L (3-33) 13 U/L (3-33) Alkaline Phosphatase 88 U/L (35-104) 87 U/L (35-104) Total Protein 6.8 g/dL (6.6-8.7) 7.6 g/dL (6.6-8.7) Albumin 3.4 g/dL (3.5-5.2) L 3.4 g/dL (3.5-5.2) L Globulin 3.4 g/dL 4.2 g/dL Albumin/Globulin Ratio 1.0 (1.0-2.7) 0.8 (1.0-2.7) L Thyroid Stimulating Hormone (TSH) 0.508 uIU/mL (0.300-4.500) 0.752 uIU/mL (0.300-4.500) Free Thyroxine 1.29 ng/dL (0.86-1.85) Free Triiodothyronine 2.9 pg/mL (2.0-4.4) Cortisol 10.2 ug/dL (.) Urine Color Pale yellow Urine Appearance Slightly cloudy Urine pH 7 (4.5-8.0) Urine Specific [place] 1.010 (1.005-1.035) Urine Protein 2+ (NEGATIVE) H Urine Glucose (UA) Negative (NEGATIVE) Urine Ketones Negative (NEGATIVE) Urine Occult Blood 3+ (NEGATIVE) H Urine Nitrite Negative (NEGATIVE) Urine Bilirubin Negative (NEGATIVE) Urine Urobilinogen Normal MG/DL (0.0-1.0) Urine Leukocyte Esterase 3+ (NEGATIVE) H Urine RBC 5-10 /HPF (0 - 2) H Urine WBC 10-15 /HPF (0 - 2) H Urine Squamous Epithelial Cells Few /LPF (NONE/OCC) Urine Amorphous Sediment Few /LPF (NONE) H Urine Bacteria Moderate /HPF (NONE) H Urine Eosinophils None seen Urine Osmolality Pending Urine Random Sodium 60 mmol/L Urine Random Chloride 56 mmol/L Urine Potassium Timed 32 mmol/L White Blood Count 7.6 K/UL (4.8-10.8) Red Blood Count 4.64 M/UL (4.20-5.40) Hemoglobin 13.4 G/DL (12.0-16.0) Hematocrit 40.9 % (37.0-47.0) Mean Corpuscular Volume 88 FL (80-99) Mean Corpuscular Hemoglobin 28.9 PG (27.0-31.0) Mean Corpuscular Hemoglobin Concent 32.8 G/DL (32.0-36.0) Red Cell Distribution Width 12.2 % (11.6-14.8) Platelet Count 326 K/UL (150-450) Mean Platelet Volume 5.8 FL (6.5-10.1) L Neutrophils (%) (Auto) 61.3 % (45.0-75.0) Lymphocytes (%) (Auto) 21.0 % (20.0-45.0) Monocytes (%) (Auto) 7.3 % (1.0-10.0) Eosinophils (%) (Auto) 8.8 % (0.0-3.0) H Basophils (%) (Auto) 1.6 % (0.0-2.0) Hemoglobin A1c 7.9 % (< 6.0) H Triglycerides Level 307 mg/dL (< 150) H Cholesterol Level 143 mg/dL (< 200) LDL Cholesterol 46 mg/dL (60-99) L HDL Cholesterol 36 mg/dL (> 60) Cholesterol/HDL Ratio 4.0 (3.3-4.4) Current Medications Medications (Trade) Dose Ordered Sig/Eunice Route PRN Reason Start Time Stop Time Status Last Admin Dose Admin Acetaminophen (Tylenol) 650 mg Q4H PRN ORAL fever 10/03/16 14:00 11/02/16 13:59 Al Hydroxide/Mg Hydroxide (Mylanta II) 30 ml Q6H PRN ORAL dyspepsia 10/03/16 14:00 11/02/16 13:59 Albuterol/ Ipratropium (DuoNeb 0.5-3(2.5)mg/3ml) 3 ml Q6HRT HHN 10/03/16 19:00 10/08/16 18:59 4/19/17 08:29 Amlodipine Besylate (Norvasc) 10 mg DAILY ORAL 10/04/16 09:00 11/03/16 08:59 10/04/16 09:10 Aspirin (Ecotrin) 81 mg DAILY ORAL 10/04/16 09:00 11/03/16 08:59 10/04/16 09:01 Atorvastatin Calcium (Lipitor) 10 mg BEDTIME ORAL 10/03/16 21:00 11/02/16 20:59 10/03/16 21:18 Bisacodyl (Dulcolax) 10 mg DAILY PRN RECTAL Constipation 10/04/16 09:00 11/03/16 08:59 Cefepime HCl/ Dextrose (Maxipime/D5W) 55 ml @ 110 mls/hr Q24H IV 10/03/16 16:00 10/10/16 15:59 10/03/16 16:48 Clonidine HCl (Catapres) 0.1 mg EVERY 8 HOURS PRN ORAL SBP>160 10/03/16 14:00 11/02/16 13:59 10/03/16 22:46 Clopidogrel Bisulfate (Plavix) 75 mg DAILY ORAL 10/04/16 09:00 11/03/16 08:59 10/04/16 09:11 Dextrose STAT PRN IV Hypoglycemia 10/03/16 14:00 11/02/16 13:59 Donepezil HCl (Aricept) 10 mg QHS ORAL 10/03/16 21:00 11/02/16 20:59 10/03/16 21:20 Heparin Sodium (Porcine) (Heparin 5000 units/ml) 5,000 units EVERY 12 HOURS SUBQ 10/03/16 21:00 11/02/16 20:59 10/04/16 09:14 Insulin Aspart (NovoLOG) BEFORE MEALS AND HS SUBQ 10/03/16 16:30 11/02/16 16:29 10/04/16 12:20 Lorazepam (Ativan 2mg/ml 1ml) 0.5 mg Q4H PRN IV For Anxiety 10/03/16 14:00 10/10/16 13:59 Morphine Sulfate (Morphine Sulfate) 1 mg EVERY 4 HOURS PRN IVP For Pain 10/03/16 14:00 10/10/16 13:59 Olanzapine (ZyPREXA) 1.25 mg DAILY PRN ORAL Schizophrenia 10/03/16 14:00 11/02/16 13:59 Ondansetron HCl (Zofran) 4 mg Q6H PRN IVP Nausea & Vomiting 10/03/16 14:00 11/02/16 13:59 Polyethylene Glycol (Miralax) 17 gm HSPRN PRN ORAL Constipation 10/03/16 14:00 11/02/16 13:59 Promethazine HCl/ Codeine (Phenergan with Codeine) 5 ml Q4H PRN ORAL For Cough 10/03/16 14:00 11/02/16 13:59 Vancomycin HCl 1 ea 1 ea DAILY PRN MISC Per rx protocol 10/03/16 14:00 11/02/16 13:59 Vancomycin HCl/ Dextrose (Vancomycin/D5W) 325 ml @ 162.5 mls/ hr DAILY@1700 IVPB 10/03/16 17:00 10/08/16 16:59 10/03/16 18:12 Zolpidem Tartrate (Ambien) 5 mg HSPRN PRN ORAL Insomnia 10/03/16 14:00 11/02/16 13:59 Ryne Veiira M.D. Oct 04, 2016 12:29
--- NOTE | 2016-10-04 15:28 | General Progress Note ---
Assessment/Plan Problem List: (1) Toe gangrene ICD Codes: I96 - Gangrene, not elsewhere classified SNOMED: 222842727 (2) YUDY (acute kidney injury) ICD Codes: N17.9 - Acute kidney failure, unspecified SNOMED: 42677574 (3) LLL pneumonia ICD Codes: J18.1 - Lobar pneumonia, unspecified organism SNOMED: 508834486 (4) Traumatic ecchymosis of toe of right foot ICD Codes: S90.121A - Contusion of right lesser toe(s) without damage to nail, initial encounter SNOMED: 55513384 (5) UTI (urinary tract infection) ICD Codes: N39.0 - Urinary tract infection, site not specified SNOMED: 12911836 Status: stable, progressing, tolerating diet Assessment/Plan ot pt diwt owund care abx cbc bmp am Subjective Constitutional: Reports: weakness Allergies: Coded Allergies: No Known Allergies (Unverified , 10/03/16) All Systems: reviewed and negative except above Subjective calm in bed Objective Last 24 Hour Vital Signs Date Time Temp Pulse Resp B/P Pulse Ox O2 Delivery O2 Flow Rate FiO2 10/04/16 12:59 110 20 97 Room Air 10/04/16 12:59 110 20 97 Room Air 10/04/16 12:00 97.0 95 18 113/62 95 Room Air 10/04/16 09:10 103 133/80 10/04/16 08:36 95 18 98 Room Air 10/04/16 08:34 95 18 98 Room Air 10/04/16 08:34 21 10/04/16 08:32 92 18 Room Air 10/04/16 08:16 97.7 89 20 159/84 97 Room Air 10/04/16 08:00 97.7 89 20 159/84 97 Room Air 10/04/16 04:00 97.0 88 18 140/77 97 Room Air 10/04/16 00:12 Room Air 10/04/16 00:11 Room Air 10/04/16 00:00 97.7 96 18 149/66 96 Room Air 10/03/16 22:46 176/90 10/03/16 21:28 105 20 Room Air 10/03/16 21:28 109 20 98 Room Air 10/03/16 21:27 105 20 96 Room Air 21 10/03/16 20:00 97.7 106 18 176/90 95 Room Air 10/03/16 16:00 97.5 97 18 128/85 99 Room Air Intake and Output 10/03/16 10/04/16 19:00 07:00 Intake Total 600 ml 700.0 ml Output Total 1400 ml Balance 600 ml -700.0 ml Intake Oral 600 ml 375 ml IV Total 325.0 ml Output Urine Total 1400 ml # Voids 3 Laboratory Tests 10/03/16 16:15: Sodium Level 138, Potassium Level 4.4, Chloride Level 97L, Carbon Dioxide Level 24, Anion Gap 17H, Blood Urea Nitrogen 19, Creatinine 1.6H, Estimat Glomerular Filtration Rate , Glucose Level 196H, Plasma/Serum Osmolality [Pending], Uric Acid 6.5, Calcium Level 9.1, Phosphorus Level 3.9, Magnesium Level 2.0, Total Bilirubin < 0.2, Aspartate Amino Transf (AST/SGOT) 20, Alanine Aminotransferase (ALT/SGPT) 13, Alkaline Phosphatase 88, Total Protein 6.8, Albumin 3.4L, Globulin 3.4, Albumin/Globulin Ratio 1.0, Thyroid Stimulating Hormone (TSH) 0.508, Free Thyroxine 1.29, Free Triiodothyronine 2.9, Cortisol 10.2 10/03/16 16:20: Urine Color Pale yellow, Urine Appearance Slightly cloudy, Urine pH 7, Urine Specific [place] 1.010, Urine Protein 2+H, Urine Glucose (UA) Negative, Urine Ketones Negative, Urine Occult Blood 3+H, Urine Nitrite Negative, Urine Bilirubin Negative, Urine Urobilinogen Normal, Urine Leukocyte Esterase 3+H, Urine RBC 5-10H, Urine WBC 10-15H, Urine Squamous Epithelial Cells Few, Urine Amorphous Sediment FewH, Urine Bacteria ModerateH, Urine Eosinophils None seen, Urine Osmolality [Pending], Urine Random Sodium 60, Urine Random Chloride 56, Urine Potassium Timed 32 10/04/16 04:40: Sodium Level 139, Potassium Level 4.3, Chloride Level 97L, Carbon Dioxide Level 27, Anion Gap 15, Blood Urea Nitrogen 25H, Creatinine 1.6H, Estimat Glomerular Filtration Rate , Glucose Level 166H, Calcium Level 9.4, Total Bilirubin 0.2, Aspartate Amino Transf (AST/SGOT) 18, Alanine Aminotransferase (ALT/SGPT) 13, Alkaline Phosphatase 87, Total Protein 7.6, Albumin 3.4L, Globulin 4.2, Albumin/ Globulin Ratio 0.8L, Thyroid Stimulating Hormone (TSH) 0.752, White Blood Count 7.6, Red Blood Count 4.64, Hemoglobin 13.4, Hematocrit 40.9, Mean Corpuscular Volume 88, Mean Corpuscular Hemoglobin 28.9, Mean Corpuscular Hemoglobin Concent 32.8, Red Cell Distribution Width 12.2, Platelet Count 326, Mean Platelet Volume 5.8L, Neutrophils (%) (Auto) 61.3, Lymphocytes (%) (Auto) 21.0, Monocytes (%) (Auto) 7.3, Eosinophils (%) (Auto) 8.8H, Basophils (%) (Auto) 1.6 , Hemoglobin A1c 7.9H, Triglycerides Level 307H, Cholesterol Level 143, LDL Cholesterol 46L, HDL Cholesterol 36, Cholesterol/HDL Ratio 4.0 Height (Feet): 5 Height (Inches): 4.00 Weight (Pounds): 200 General Appearance: lethargic EENT: normal ENT inspection Neck: normal alignment Cardiovascular: normal peripheral pulses, normal rate, regular rhythm Respiratory/Chest: chest wall non-tender, lungs clear, normal breath sounds Abdomen: normal bowel sounds, non tender, soft Extremities: normal inspection Edema: no edema noted Arm (L), no edema noted Arm (R), no edema noted Leg (L), no edema noted Leg (R), no edema noted Pedal (L), no edema noted Pedal (R), no edema noted Generalized Neurologic: responsive, motor weakness Skin: normal pigmentation, warm/dry KENDY MUELLER Oct 04, 2016 15:28
[2016-10-04] MEDS: Cefepime HCl 1 GM in D5W 55 ML IV SCH (16:18)
--- NOTE | 2016-10-04 16:35 | Diagnostic Imaging Report ---
Indication: Acute renal failure Technique: Grayscale and duplex images of the kidneys, retroperitoneum, and bladder were obtained. Comparison:None Findings: Exam is limited due to patient body habitus Right kidney measures 10.7 cm in length. Left kidney measures 8.8 cm in length. Both kidneys demonstrate equivocally slightly increased echogenicity. No hydronephrosis. E in the left renal sinus could represent a tiny calculus, although this is far from certain.. Normal inferior vena cava. Bladder is empty, contains a Scott catheter. Impression: Negative for hydronephrosis Equivocally increased renal echogenicity, could indicate medical renal disease Questionable tiny left renal calyceal calculus, nonobstructive Empty bladder with a Scott catheter.
[2016-10-04] MEDS: Vancomycin 1.5 GM/D5W 325 ML IVPB SCH ×2 (16:49)
--- NOTE | 2016-10-04 18:17 | Pulmonology Progress Note ---
Assessment/Plan Problems: (1) LLL pneumonia (2) UTI (urinary tract infection) (3) Traumatic ecchymosis of toe of right foot (4) Hypertension (5) Diabetes mellitus (6) Dementia Assessment/Plan continue abx check cultures chest pt venous doppler noted all labs, meds, notes revewed Subjective ROS Limited/Unobtainable: No Interval Events: feeling better, looks better Allergies: Coded Allergies: No Known Allergies (Unverified , 10/03/16) Objective Last 24 Hour Vital Signs Date Time Temp Pulse Resp B/P Pulse Ox O2 Delivery O2 Flow Rate FiO2 10/04/16 16:00 97.3 93 18 158/72 95 Room Air 10/04/16 12:59 110 20 97 Room Air 21 10/04/16 12:59 110 20 97 Room Air 21 10/04/16 12:00 97.0 95 18 113/62 95 Room Air 10/04/16 09:10 103 133/80 10/04/16 08:36 95 18 98 Room Air 21 10/04/16 08:34 95 18 98 Room Air 21 10/04/16 08:34 21 10/04/16 08:32 92 18 Room Air 21 10/04/16 08:16 97.7 89 20 159/84 97 Room Air 10/04/16 08:00 97.7 89 20 159/84 97 Room Air 10/04/16 04:00 97.0 88 18 140/77 97 Room Air 10/04/16 00:12 Room Air 21 10/04/16 00:11 Room Air 21 10/04/16 00:00 97.7 96 18 149/66 96 Room Air 10/03/16 22:46 176/90 10/03/16 21:28 105 20 Room Air 21 10/03/16 21:28 109 20 98 Room Air 21 10/03/16 21:27 105 20 96 Room Air 21 10/03/16 20:00 97.7 106 18 176/90 95 Room Air Intake and Output 10/03/16 10/04/16 19:00 07:00 Intake Total 600 ml 700.0 ml Output Total 1400 ml Balance 600 ml -700.0 ml Intake Oral 600 ml 375 ml IV Total 325.0 ml Output Urine Total 1400 ml # Voids 3 Objective General Appearance: WD/WN HEENT: normocephalic Respiratory/Chest: chest wall non-tender, lungs clear Cardiovascular: normal peripheral pulses, normal rate Abdomen: normal bowel sounds Genitourinary: normal external genitalia Ext: no c/c/e Microbiology Date/Time Source Procedure Growth Status 10/03/16 16:20 Urine,Clean Catch Urine Culture - Preliminary Gram Negative Bacillus 1 Resulted Laboratory Tests 10/04/16 04:40: White Blood Count 7.6, Red Blood Count 4.64, Hemoglobin 13.4, Hematocrit 40.9, Mean Corpuscular Volume 88, Mean Corpuscular Hemoglobin 28.9, Mean Corpuscular Hemoglobin Concent 32.8, Red Cell Distribution Width 12.2, Platelet Count 326, Mean Platelet Volume 5.8L, Neutrophils (%) (Auto) 61.3, Lymphocytes (%) (Auto) 21.0, Monocytes (%) (Auto) 7.3, Eosinophils (%) (Auto) 8.8H, Basophils (%) (Auto ) 1.6, Sodium Level 139, Potassium Level 4.3, Chloride Level 97L, Carbon Dioxide Level 27, Anion Gap 15, Blood Urea Nitrogen 25H, Creatinine 1.6H, Estimat Glomerular Filtration Rate , Glucose Level 166H, Hemoglobin A1c 7.9H, Calcium Level 9.4, Total Bilirubin 0.2, Aspartate Amino Transf (AST/SGOT) 18, Alanine Aminotransferase (ALT/SGPT) 13, Alkaline Phosphatase 87, Total Protein 7.6, Albumin 3.4L, Globulin 4.2, Albumin/Globulin Ratio 0.8L, Triglycerides Level 307H, Cholesterol Level 143, LDL Cholesterol 46L, HDL Cholesterol 36, Cholesterol/HDL Ratio 4.0, Thyroid Stimulating Hormone (TSH) 0.752 Current Medications Medications (Trade) Dose Ordered Sig/Eunice Route PRN Reason Start Time Stop Time Status Last Admin Dose Admin Acetaminophen (Tylenol) 650 mg Q4H PRN ORAL fever 10/03/16 14:00 11/02/16 13:59 Al Hydroxide/Mg Hydroxide (Mylanta II) 30 ml Q6H PRN ORAL dyspepsia 10/03/16 14:00 11/02/16 13:59 Albuterol/ Ipratropium (DuoNeb 0.5-3(2.5)mg/3ml) 3 ml Q6HRT HHN 10/03/16 19:00 10/08/16 18:59 10/04/16 08:29 Amlodipine Besylate (Norvasc) 10 mg DAILY ORAL 10/04/16 09:00 11/03/16 08:59 10/04/16 09:10 Aspirin (Ecotrin) 81 mg DAILY ORAL 10/04/16 09:00 11/03/16 08:59 10/04/16 09:01 Atorvastatin Calcium (Lipitor) 10 mg BEDTIME ORAL 10/03/16 21:00 11/02/16 20:59 10/03/16 21:18 Bisacodyl (Dulcolax) 10 mg DAILY PRN RECTAL Constipation 10/04/16 09:00 11/03/16 08:59 Cefepime HCl/ Dextrose (Maxipime/D5W) 55 ml @ 110 mls/hr Q24H IV 10/03/16 16:00 10/10/16 15:59 10/04/16 16:18 Clonidine HCl (Catapres) 0.1 mg EVERY 8 HOURS PRN ORAL SBP>160 10/03/16 14:00 11/02/16 13:59 10/03/16 22:46 Clopidogrel Bisulfate (Plavix) 75 mg DAILY ORAL 10/04/16 09:00 11/03/16 08:59 10/04/16 09:11 Dextrose STAT PRN IV Hypoglycemia 10/03/16 14:00 11/02/16 13:59 Donepezil HCl (Aricept) 10 mg QHS ORAL 10/03/16 21:00 11/02/16 20:59 10/03/16 21:20 Heparin Sodium (Porcine) (Heparin 5000 units/ml) 5,000 units EVERY 12 HOURS SUBQ 10/03/16 21:00 11/02/16 20:59 10/04/16 09:14 Insulin Aspart (NovoLOG) BEFORE MEALS AND HS SUBQ 10/03/16 16:30 11/02/16 16:29 10/04/16 16:48 Lorazepam (Ativan 2mg/ml 1ml) 0.5 mg Q4H PRN IV For Anxiety 10/03/16 14:00 10/10/16 13:59 Morphine Sulfate (Morphine Sulfate) 1 mg EVERY 4 HOURS PRN IVP For Pain 10/03/16 14:00 10/10/16 13:59 Olanzapine (ZyPREXA) 1.25 mg DAILY PRN ORAL Schizophrenia 10/03/16 14:00 11/02/16 13:59 Ondansetron HCl (Zofran) 4 mg Q6H PRN IVP Nausea & Vomiting 10/03/16 14:00 11/02/16 13:59 Polyethylene Glycol (Miralax) 17 gm HSPRN PRN ORAL Constipation 10/03/16 14:00 11/02/16 13:59 Promethazine HCl/ Codeine (Phenergan with Codeine) 5 ml Q4H PRN ORAL For Cough 10/03/16 14:00 11/02/16 13:59 Vancomycin HCl 1 ea 1 ea DAILY PRN MISC Per rx protocol 10/03/16 14:00 11/02/16 13:59 Vancomycin HCl/ Dextrose (Vancomycin/D5W) 325 ml @ 162.5 mls/ hr DAILY@1700 IVPB 10/03/16 17:00 10/08/16 16:59 10/04/16 16:49 Zolpidem Tartrate (Ambien) 5 mg HSPRN PRN ORAL Insomnia 10/03/16 14:00 11/02/16 13:59 MINAL FREEMAN Oct 04, 2016 18:17
[2016-10-04] MEDS: Donepezil 10mg tab ORAL SCH (20:14)
--- NOTE | 2016-10-04 21:13 | Cardiology Progress Note ---
Assessment/Plan Assessment/Plan The patient is seen and examined, full consult note will be dictated. Objective Last 24 Hour Vital Signs Date Time Temp Pulse Resp B/P Pulse Ox O2 Delivery O2 Flow Rate FiO2 10/04/16 20:00 98.1 88 20 133/72 96 Room Air 10/04/16 19:40 82 20 98 Room Air 21 10/04/16 19:30 79 20 Room Air 21 10/04/16 19:30 79 20 96 Room Air 21 10/04/16 16:00 97.3 93 18 158/72 95 Room Air 10/04/16 12:59 110 20 97 Room Air 21 10/04/16 12:59 110 20 97 Room Air 21 10/04/16 12:00 97.0 95 18 113/62 95 Room Air 10/04/16 09:10 103 133/80 10/04/16 08:36 95 18 98 Room Air 21 10/04/16 08:34 95 18 98 Room Air 21 10/04/16 08:34 21 10/04/16 08:32 92 18 Room Air 10/04/16 08:16 97.7 89 20 159/84 97 Room Air 10/04/16 08:00 97.7 89 20 159/84 97 Room Air 10/04/16 04:00 97.0 88 18 140/77 97 Room Air 10/04/16 00:12 Room Air 21 10/04/16 00:11 Room Air 21 10/04/16 00:00 97.7 96 18 149/66 96 Room Air 10/03/16 22:46 176/90 10/03/16 21:28 105 20 Room Air 10/03/16 21:28 109 20 98 Room Air 21 10/03/16 21:27 105 20 96 Room Air 21 Intake and Output 10/03/16 10/04/16 19:00 07:00 Intake Total 600 ml 700.0 ml Output Total 1400 ml Balance 600 ml -700.0 ml Intake Oral 600 ml 375 ml IV Total 325.0 ml Output Urine Total 1400 ml # Voids 3 Laboratory Tests Test 10/04/16 04:40 White Blood Count 7.6 K/UL (4.8-10.8) Red Blood Count 4.64 M/UL (4.20-5.40) Hemoglobin 13.4 G/DL (12.0-16.0) Hematocrit 40.9 % (37.0-47.0) Mean Corpuscular Volume 88 FL (80-99) Mean Corpuscular Hemoglobin 28.9 PG (27.0-31.0) Mean Corpuscular Hemoglobin Concent 32.8 G/DL (32.0-36.0) Red Cell Distribution Width 12.2 % (11.6-14.8) Platelet Count 326 K/UL (150-450) Mean Platelet Volume 5.8 FL (6.5-10.1) L Neutrophils (%) (Auto) 61.3 % (45.0-75.0) Lymphocytes (%) (Auto) 21.0 % (20.0-45.0) Monocytes (%) (Auto) 7.3 % (1.0-10.0) Eosinophils (%) (Auto) 8.8 % (0.0-3.0) H Basophils (%) (Auto) 1.6 % (0.0-2.0) Sodium Level 139 mEQ/L (135-145) Potassium Level 4.3 mEQ/L (3.4-4.9) Chloride Level 97 mEQ/L (98-107) L Carbon Dioxide Level 27 mEQ/L (20-30) Anion Gap 15 (5-15) Blood Urea Nitrogen 25 mg/dL (7-23) H Creatinine 1.6 mg/dL (0.5-0.9) H Estimat Glomerular Filtration Rate mL/min (>60) Glucose Level 166 mg/dL (74-106) H Hemoglobin A1c 7.9 % (< 6.0) H Calcium Level 9.4 mg/dL (8.6-10.2) Total Bilirubin 0.2 mg/dL (0.0-1.2) Aspartate Amino Transf (AST/SGOT) 18 U/L (5-40) Alanine Aminotransferase (ALT/SGPT) 13 U/L (3-33) Alkaline Phosphatase 87 U/L (35-104) Total Protein 7.6 g/dL (6.6-8.7) Albumin 3.4 g/dL (3.5-5.2) L Globulin 4.2 g/dL Albumin/Globulin Ratio 0.8 (1.0-2.7) L Triglycerides Level 307 mg/dL (< 150) H Cholesterol Level 143 mg/dL (< 200) LDL Cholesterol 46 mg/dL (60-99) L HDL Cholesterol 36 mg/dL (> 60) Cholesterol/HDL Ratio 4.0 (3.3-4.4) Thyroid Stimulating Hormone (TSH) 0.752 uIU/mL (0.300-4.500) Microbiology Date/Time Source Procedure Growth Status 10/03/16 16:20 Urine,Clean Catch Urine Culture - Preliminary Gram Negative Bacillus 1 Resulted ARIELLA CHASE Oct 04, 2016 21:13
[2016-10-05] MEDS: DuoNeb 0.5-3(2.5)mg/3ml neb HHN SCH ×4 (01:28→19:19)
[2016-10-05 03:51] VITALS: BP 129/61
[2016-10-05] MEDS: NovoLOG Insulin Flexpen SUBQ SCH ×4 (05:56→20:20)
[2016-10-05 07:18] LABS: BASOPHILS % (AUTO) 1.4 % (0.0-2.0); MEAN CORPUSCULAR HEMOGLOBIN 28.2 PG (27.0-31.0); MEAN CORPUSCULAR HGB CONC 32.3 G/DL (32.0-36.0); MEAN CORPUSCULAR VOLUME 87 FL (80-99); MEAN PLATELET VOLUME 5.8 FL (6.5-10.1); MONOCYTES % (AUTO) 9.5 % (1.0-10.0); NEUTROPHILS % (AUTO) 54.1 % (45.0-75.0); PLATELET COUNT 313 K/UL (150-450); RED BLOOD COUNT 4.37 M/UL (4.20-5.40); RED CELL DISTRIBUTION WIDTH 12.2 % (11.6-14.8)
[2016-10-05 07:52] LABS: ANION GAP 16 (5-15); CALCIUM 8.9 mg/dL (8.6-10.2); CARBON DIOXIDE 24 mEQ/L (20-30); CHLORIDE 95 mEQ/L (98-107); CREATININE 1.5 mg/dL (0.5-0.9); HEMOLYSIS 7; POTASSIUM 4.1 mEQ/L (3.4-4.9); SODIUM 135 mEQ/L (135-145)
[2016-10-05 08:17] VITALS: BP 156/84
[2016-10-05] MEDS: Aspirin EC 81mg tab ORAL SCH (08:50)
[2016-10-05] MEDS: Heparin 5000 units/ml inj SUBQ SCH ×2 (08:51→20:20)
[2016-10-05 12:18] VITALS: BP 137/86
--- NOTE | 2016-10-05 13:48 | General Progress Note ---
Assessment/Plan Problem List: (1) Toe gangrene ICD Codes: I96 - Gangrene, not elsewhere classified SNOMED: 623940386 (2) YUDY (acute kidney injury) ICD Codes: N17.9 - Acute kidney failure, unspecified SNOMED: 37339817 (3) LLL pneumonia ICD Codes: J18.1 - Lobar pneumonia, unspecified organism SNOMED: 614143986 (4) Traumatic ecchymosis of toe of right foot ICD Codes: S90.121A - Contusion of right lesser toe(s) without damage to nail, initial encounter SNOMED: 82193360 (5) UTI (urinary tract infection) ICD Codes: N39.0 - Urinary tract infection, site not specified SNOMED: 38099100 Status: stable, progressing, tolerating diet Assessment/Plan ot pt diet wound care abx cbc bmp am ltach eval Subjective Constitutional: Reports: weakness Allergies: Coded Allergies: No Known Allergies (Unverified , 10/03/16) All Systems: reviewed and negative except above Subjective calm in bed Objective Last 24 Hour Vital Signs Date Time Temp Pulse Resp B/P Pulse Ox O2 Delivery O2 Flow Rate FiO2 10/05/16 13:37 76 20 96 Room Air 21 10/05/16 12:18 98.4 101 20 137/86 100 Room Air 10/05/16 08:50 90 156/84 10/05/16 08:17 98.0 90 20 156/84 100 Room Air 10/05/16 07:30 79 20 99 Room Air 21 10/05/16 07:20 77 20 Room Air 21 10/05/16 07:20 77 20 96 Room Air 21 10/05/16 03:51 97.4 80 19 129/61 96 Room Air 10/05/16 01:29 80 20 99 Room Air 21 10/05/16 01:28 76 20 98 Room Air 21 10/04/16 23:37 98.1 99 20 136/98 95 Room Air 10/04/16 20:00 98.1 88 20 133/72 96 Room Air 10/04/16 19:40 82 20 98 Room Air 21 10/04/16 19:30 79 20 Room Air 21 10/04/16 19:30 79 20 96 Room Air 21 10/04/16 16:00 97.3 93 18 158/72 95 Room Air Intake and Output 10/04/16 10/05/16 19:00 07:00 Intake Total 1100.0 ml 350 ml Output Total 1000 ml 1600 ml Balance 100.0 ml -1250 ml Intake Oral 720 ml 350 ml IV Total 380.0 ml Output Urine Total 1000 ml 1600 ml Laboratory Tests 10/05/16 04:50: White Blood Count 7.0, Red Blood Count 4.37, Hemoglobin 12.4, Hematocrit 38.3, Mean Corpuscular Volume 87, Mean Corpuscular Hemoglobin 28.2, Mean Corpuscular Hemoglobin Concent 32.3, Red Cell Distribution Width 12.2, Platelet Count 313, Mean Platelet Volume 5.8L, Neutrophils (%) (Auto) 54.1, Lymphocytes (%) (Auto) 26.0, Monocytes (%) (Auto) 9.5, Eosinophils (%) (Auto) 9.0H, Basophils (%) (Auto ) 1.4, Sodium Level 135, Potassium Level 4.1, Chloride Level 95L, Carbon Dioxide Level 24, Anion Gap 16H, Blood Urea Nitrogen 26H, Creatinine 1.5H, Estimat Glomerular Filtration Rate , Glucose Level 180H, Calcium Level 8.9 Height (Feet): 5 Height (Inches): 4.00 Weight (Pounds): 200 General Appearance: lethargic EENT: normal ENT inspection Neck: normal alignment Cardiovascular: normal peripheral pulses, normal rate, regular rhythm Respiratory/Chest: chest wall non-tender, lungs clear, normal breath sounds Abdomen: normal bowel sounds, non tender, soft Extremities: normal inspection Edema: no edema noted Arm (L), no edema noted Arm (R), no edema noted Leg (L), no edema noted Leg (R), no edema noted Pedal (L), no edema noted Pedal (R), no edema noted Generalized Neurologic: motor weakness Skin: normal pigmentation, warm/dry KENDY MUELLER Oct 05, 2016 13:48
--- NOTE | 2016-10-05 15:34 | Infectious Diseases Prog Note ---
Assessment/Plan Problems: (1) LLL pneumonia Assessment & Plan: continue vancomycin and cefepime for 7 days , monitor CXR (2) YUDY (acute kidney injury) Assessment & Plan: continue fluids for hydration, monitor UOP, avoid nephrotoxic meds, consult renal service (3) Traumatic ecchymosis of toe of right foot Assessment & Plan: had X ray with no evidence of fracture , consult organ pipe maker metal , recommend arterial doppler (4) UTI (urinary tract infection) Assessment & Plan: with gram negative rods, on cefepime already, await culture Subjective ROS Limited/Unobtainable: Yes Allergies: Coded Allergies: No Known Allergies (Unverified , 10/03/16) Subjective she is demented, up in bed, awake not in distress. Objective Vital Signs Last 24 Hour Vital Signs Date Time Temp Pulse Resp B/P Pulse Ox O2 Delivery O2 Flow Rate FiO2 10/05/16 13:47 80 20 99 Room Air 21 10/05/16 13:37 76 20 96 Room Air 21 10/05/16 12:18 98.4 101 20 137/86 100 Room Air 10/05/16 08:50 90 156/84 10/05/16 08:17 98.0 90 20 156/84 100 Room Air 10/05/16 07:30 79 20 99 Room Air 21 10/05/16 07:20 77 20 Room Air 21 10/05/16 07:20 77 20 96 Room Air 21 10/05/16 03:51 97.4 80 19 129/61 96 Room Air 10/05/16 01:29 80 20 99 Room Air 21 10/05/16 01:28 76 20 98 Room Air 21 10/04/16 23:37 98.1 99 20 136/98 95 Room Air 10/04/16 20:00 98.1 88 20 133/72 96 Room Air 10/04/16 19:40 82 20 98 Room Air 21 10/04/16 19:30 79 20 Room Air 21 10/04/16 19:30 79 20 96 Room Air 21 10/04/16 16:00 97.3 93 18 158/72 95 Room Air Height (Feet): 5 Height (Inches): 4.00 Weight (Pounds): 200 General Appearance: WD/WN, no acute distress HEENT: normocephalic, atraumatic, anicteric, mucous membranes moist Respiratory/Chest: chest wall non-tender, lungs clear, normal breath sounds, no respiratory distress, no accessory muscle use Cardiovascular: normal peripheral pulses, normal rate, regular rhythm, no gallop/murmur Abdomen: normal bowel sounds, soft, non tender, no organomegaly, non distended , no mass Extremities: no cyanosis, no clubbing Skin: no rash, no lesions Microbiology Date/Time Source Procedure Growth Status 10/03/16 10:25 Blood Blood Culture - Preliminary NO GROWTH AFTER 24 HOURS Resulted 10/03/16 10:20 Blood Blood Culture - Preliminary NO GROWTH AFTER 24 HOURS Resulted 10/04/16 10:35 Sputum Gram Stain - Final Resulted 10/04/16 10:35 Sputum Sputum Culture - Preliminary NORMAL UPPER RESPIRATORY LITA AT 24 ... Resulted 10/03/16 12:55 Nasal Nares MRSA Culture - Final NO METHICILLIN RESISTANT STAPH AUREUS... Complete 10/03/16 16:20 Urine,Clean Catch Urine Culture - Final Escherichia Coli Complete 10/03/16 12:55 Rectum VRE Culture - Final NO VANCOMYCIN RESISTANT ENTEROCOCCUS ... Complete Laboratory Tests Test 10/05/16 04:50 White Blood Count 7.0 K/UL (4.8-10.8) Red Blood Count 4.37 M/UL (4.20-5.40) Hemoglobin 12.4 G/DL (12.0-16.0) Hematocrit 38.3 % (37.0-47.0) Mean Corpuscular Volume 87 FL (80-99) Mean Corpuscular Hemoglobin 28.2 PG (27.0-31.0) Mean Corpuscular Hemoglobin Concent 32.3 G/DL (32.0-36.0) Red Cell Distribution Width 12.2 % (11.6-14.8) Platelet Count 313 K/UL (150-450) Mean Platelet Volume 5.8 FL (6.5-10.1) L Neutrophils (%) (Auto) 54.1 % (45.0-75.0) Lymphocytes (%) (Auto) 26.0 % (20.0-45.0) Monocytes (%) (Auto) 9.5 % (1.0-10.0) Eosinophils (%) (Auto) 9.0 % (0.0-3.0) H Basophils (%) (Auto) 1.4 % (0.0-2.0) Sodium Level 135 mEQ/L (135-145) Potassium Level 4.1 mEQ/L (3.4-4.9) Chloride Level 95 mEQ/L (98-107) L Carbon Dioxide Level 24 mEQ/L (20-30) Anion Gap 16 (5-15) H Blood Urea Nitrogen 26 mg/dL (7-23) H Creatinine 1.5 mg/dL (0.5-0.9) H Estimat Glomerular Filtration Rate mL/min (>60) Glucose Level 180 mg/dL (74-106) H Calcium Level 8.9 mg/dL (8.6-10.2) Current Medications Medications (Trade) Dose Ordered Sig/Eunice Route PRN Reason Start Time Stop Time Status Last Admin Dose Admin Acetaminophen (Tylenol) 650 mg Q4H PRN ORAL fever 10/03/16 14:00 11/02/16 13:59 Al Hydroxide/Mg Hydroxide (Mylanta II) 30 ml Q6H PRN ORAL dyspepsia 10/03/16 14:00 11/02/16 13:59 Albuterol/ Ipratropium (DuoNeb 0.5-3(2.5)mg/3ml) 3 ml Q6HRT HHN 10/03/16 19:00 10/08/16 18:59 10/05/16 13:37 Amlodipine Besylate (Norvasc) 10 mg DAILY ORAL 10/04/16 09:00 11/03/16 08:59 10/05/16 08:50 Aspirin (Ecotrin) 81 mg DAILY ORAL 10/04/16 09:00 11/03/16 08:59 10/05/16 08:50 Atorvastatin Calcium (Lipitor) 10 mg BEDTIME ORAL 10/03/16 21:00 11/02/16 20:59 10/04/16 20:14 Bisacodyl (Dulcolax) 10 mg DAILY PRN RECTAL Constipation 10/04/16 09:00 11/03/16 08:59 Cefepime HCl/ Dextrose (Maxipime/D5W) 55 ml @ 110 mls/hr Q24H IV 10/03/16 16:00 10/10/16 15:59 10/04/16 16:18 Clonidine HCl (Catapres) 0.1 mg EVERY 8 HOURS PRN ORAL SBP>160 10/03/16 14:00 11/02/16 13:59 10/03/16 22:46 Clopidogrel Bisulfate (Plavix) 75 mg DAILY ORAL 10/04/16 09:00 11/03/16 08:59 10/05/16 08:50 Dextrose STAT PRN IV Hypoglycemia 10/03/16 14:00 11/02/16 13:59 Donepezil HCl (Aricept) 10 mg QHS ORAL 10/03/16 21:00 11/02/16 20:59 10/04/16 20:14 Heparin Sodium (Porcine) (Heparin 5000 units/ml) 5,000 units EVERY 12 HOURS SUBQ 10/03/16 21:00 11/02/16 20:59 10/05/16 08:51 Insulin Aspart (NovoLOG) BEFORE MEALS AND HS SUBQ 10/03/16 16:30 11/02/16 16:29 10/05/16 11:37 Lorazepam (Ativan 2mg/ml 1ml) 0.5 mg Q4H PRN IV For Anxiety 10/03/16 14:00 10/10/16 13:59 Morphine Sulfate (Morphine Sulfate) 1 mg EVERY 4 HOURS PRN IVP For Pain 10/03/16 14:00 10/10/16 13:59 10/04/16 20:16 Olanzapine (ZyPREXA) 1.25 mg DAILY PRN ORAL Schizophrenia 10/03/16 14:00 11/02/16 13:59 Ondansetron HCl (Zofran) 4 mg Q6H PRN IVP Nausea & Vomiting 10/03/16 14:00 11/02/16 13:59 Polyethylene Glycol (Miralax) 17 gm HSPRN PRN ORAL Constipation 10/03/16 14:00 11/02/16 13:59 Promethazine HCl/ Codeine (Phenergan with Codeine) 5 ml Q4H PRN ORAL For Cough 10/03/16 14:00 11/02/16 13:59 Vancomycin HCl 1 ea 1 ea DAILY PRN MISC Per rx protocol 10/03/16 14:00 11/02/16 13:59 Vancomycin HCl/ Dextrose (Vancomycin/D5W) 325 ml @ 162.5 mls/ hr DAILY@1700 IVPB 10/03/16 17:00 10/08/16 16:59 10/04/16 16:49 Zolpidem Tartrate (Ambien) 5 mg HSPRN PRN ORAL Insomnia 10/03/16 14:00 11/02/16 13:59 Ryne Vieira M.D. Oct 05, 2016 15:34
[2016-10-05 15:59] VITALS: BP 160/75
[2016-10-05] MEDS: Cefepime HCl 1 GM in D5W 55 ML IV SCH (16:12)
[2016-10-05] MEDS: Vancomycin 1.5 GM/D5W 325 ML IVPB SCH ×2 (17:13)
[2016-10-05 17:30] VITALS: BP 149/62
--- NOTE | 2016-10-05 19:14 | Pulmonology Progress Note ---
Assessment/Plan Problems: (1) LLL pneumonia (2) UTI (urinary tract infection) (3) Traumatic ecchymosis of toe of right foot (4) Hypertension (5) Diabetes mellitus (6) Dementia Assessment/Plan continue abx check cultures, chest pt venous doppler noted all labs, meds, notes revewed continue the same Subjective ROS Limited/Unobtainable: No Interval Events: doing better Allergies: Coded Allergies: No Known Allergies (Unverified , 10/03/16) Objective Last 24 Hour Vital Signs Date Time Temp Pulse Resp B/P Pulse Ox O2 Delivery O2 Flow Rate FiO2 10/05/16 17:30 149/62 10/05/16 15:59 98.0 107 20 160/75 96 Room Air 10/05/16 13:47 80 20 99 Room Air 21 10/05/16 13:37 76 20 96 Room Air 21 10/05/16 12:18 98.4 101 20 137/86 100 Room Air 10/05/16 08:50 90 156/84 10/05/16 08:17 98.0 90 20 156/84 100 Room Air 10/05/16 07:30 79 20 99 Room Air 21 10/05/16 07:20 77 20 Room Air 21 10/05/16 07:20 77 20 96 Room Air 21 10/05/16 03:51 97.4 80 19 129/61 96 Room Air 10/05/16 01:29 80 20 99 Room Air 21 10/05/16 01:28 76 20 98 Room Air 21 10/04/16 23:37 98.1 99 20 136/98 95 Room Air 10/04/16 20:00 98.1 88 20 133/72 96 Room Air 10/04/16 19:40 82 20 98 Room Air 21 10/04/16 19:30 79 20 Room Air 21 10/04/16 19:30 79 20 96 Room Air 21 Intake and Output 10/04/16 10/05/16 19:00 07:00 Intake Total 1100.0 ml 350 ml Output Total 1000 ml 1600 ml Balance 100.0 ml -1250 ml Intake Oral 720 ml 350 ml IV Total 380.0 ml Output Urine Total 1000 ml 1600 ml Objective General Appearance: WD/WN HEENT: normocephalic Respiratory/Chest: chest wall non-tender, lungs clear Cardiovascular: normal peripheral pulses, normal rate Abdomen: normal bowel sounds Genitourinary: normal external genitalia Ext: no c/c/e Microbiology Date/Time Source Procedure Growth Status 10/03/16 10:25 Blood Blood Culture - Preliminary NO GROWTH AFTER 24 HOURS Resulted 10/03/16 10:20 Blood Blood Culture - Preliminary NO GROWTH AFTER 24 HOURS Resulted 10/04/16 10:35 Sputum Gram Stain - Final Resulted 10/04/16 10:35 Sputum Sputum Culture - Preliminary NORMAL UPPER RESPIRATORY LITA AT 24 ... Resulted 10/03/16 12:55 Nasal Nares MRSA Culture - Final NO METHICILLIN RESISTANT STAPH AUREUS... Complete 10/03/16 16:20 Urine,Clean Catch Urine Culture - Final Escherichia Coli Complete 10/03/16 12:55 Rectum VRE Culture - Final NO VANCOMYCIN RESISTANT ENTEROCOCCUS ... Complete Laboratory Tests 10/05/16 04:50: White Blood Count 7.0, Red Blood Count 4.37, Hemoglobin 12.4, Hematocrit 38.3, Mean Corpuscular Volume 87, Mean Corpuscular Hemoglobin 28.2, Mean Corpuscular Hemoglobin Concent 32.3, Red Cell Distribution Width 12.2, Platelet Count 313, Mean Platelet Volume 5.8L, Neutrophils (%) (Auto) 54.1, Lymphocytes (%) (Auto) 26.0, Monocytes (%) (Auto) 9.5, Eosinophils (%) (Auto) 9.0H, Basophils (%) (Auto ) 1.4, Sodium Level 135, Potassium Level 4.1, Chloride Level 95L, Carbon Dioxide Level 24, Anion Gap 16H, Blood Urea Nitrogen 26H, Creatinine 1.5H, Estimat Glomerular Filtration Rate , Glucose Level 180H, Calcium Level 8.9 10/05/16 16:10: Vancomycin Level Trough 18.5H Current Medications Medications (Trade) Dose Ordered Sig/Eunice Route PRN Reason Start Time Stop Time Status Last Admin Dose Admin Acetaminophen (Tylenol) 650 mg Q4H PRN ORAL fever 10/03/16 14:00 11/02/16 13:59 Al Hydroxide/Mg Hydroxide (Mylanta II) 30 ml Q6H PRN ORAL dyspepsia 10/03/16 14:00 11/02/16 13:59 Albuterol/ Ipratropium (DuoNeb 0.5-3(2.5)mg/3ml) 3 ml Q6HRT HHN 10/03/16 19:00 10/08/16 18:59 10/05/16 13:37 Amlodipine Besylate (Norvasc) 10 mg DAILY ORAL 10/04/16 09:00 11/03/16 08:59 10/05/16 08:50 Aspirin (Ecotrin) 81 mg DAILY ORAL 10/04/16 09:00 11/03/16 08:59 10/05/16 08:50 Atorvastatin Calcium (Lipitor) 10 mg BEDTIME ORAL 10/03/16 21:00 11/02/16 20:59 10/04/16 20:14 Bisacodyl (Dulcolax) 10 mg DAILY PRN RECTAL Constipation 10/04/16 09:00 11/03/16 08:59 Cefepime HCl/ Dextrose (Maxipime/D5W) 55 ml @ 110 mls/hr Q24H IV 10/03/16 16:00 10/10/16 15:59 10/05/16 16:12 Clonidine HCl (Catapres) 0.1 mg EVERY 8 HOURS PRN ORAL SBP>160 10/03/16 14:00 11/02/16 13:59 10/03/16 22:46 Clopidogrel Bisulfate (Plavix) 75 mg DAILY ORAL 10/04/16 09:00 11/03/16 08:59 10/05/16 08:50 Dextrose STAT PRN IV Hypoglycemia 10/03/16 14:00 11/02/16 13:59 Donepezil HCl (Aricept) 10 mg QHS ORAL 10/03/16 21:00 11/02/16 20:59 10/04/16 20:14 Heparin Sodium (Porcine) (Heparin 5000 units/ml) 5,000 units EVERY 12 HOURS SUBQ 10/03/16 21:00 11/02/16 20:59 10/05/16 08:51 Insulin Aspart (NovoLOG) BEFORE MEALS AND HS SUBQ 10/03/16 16:30 11/02/16 16:29 10/05/16 17:09 Lorazepam (Ativan 2mg/ml 1ml) 0.5 mg Q4H PRN IV For Anxiety 10/03/16 14:00 10/10/16 13:59 Morphine Sulfate (Morphine Sulfate) 1 mg EVERY 4 HOURS PRN IVP For Pain 10/03/16 14:00 10/10/16 13:59 10/04/16 20:16 Olanzapine (ZyPREXA) 1.25 mg DAILY PRN ORAL Schizophrenia 10/03/16 14:00 11/02/16 13:59 Ondansetron HCl (Zofran) 4 mg Q6H PRN IVP Nausea & Vomiting 10/03/16 14:00 11/02/16 13:59 Polyethylene Glycol (Miralax) 17 gm HSPRN PRN ORAL Constipation 10/03/16 14:00 11/02/16 13:59 Promethazine HCl/ Codeine (Phenergan with Codeine) 5 ml Q4H PRN ORAL For Cough 10/03/16 14:00 11/02/16 13:59 Vancomycin HCl 1.5 gm/Dextrose 325 ml @ 162.5 mls/ hr DAILY@1700 IVPB 10/03/16 17:00 10/05/16 23:59 10/05/16 17:13 Vancomycin HCl 1 ea 1 ea DAILY PRN MISC Per rx protocol 10/03/16 14:00 11/02/16 13:59 Vancomycin HCl/ Dextrose (Vancomycin/D5W) 325 ml @ 162.5 mls/ hr QHS IVPB 10/06/16 21:00 10/11/16 20:59 Zolpidem Tartrate (Ambien) 5 mg HSPRN PRN ORAL Insomnia 10/03/16 14:00 11/02/16 13:59 MINAL FREEMAN Oct 05, 2016 19:14
[2016-10-05 20:00] VITALS: BP 150/76
[2016-10-05] MEDS: Donepezil 10mg tab ORAL SCH (20:18)
--- NOTE | 2016-10-05 23:04 | Diagnostic Imaging Report ---
APPROVED REPORT CPT Code: 57071 Symptoms Comments: Pain BILATERAL: Common femoral artery waveform analysis is within normal limits at rest. Color flow duplex sonography reveals minimal calcification throughout the superficial femoral, and popliteal arteries. There is no evidence of stenosis or occlusion within these segments. The posterior tibial, anterior tibial and dorsalis pedis arteries are also patent. Doppler tibial artery waveform analysis is within normal limits, bilaterally. There is no evidence of significant arterial occlusive disease, bilaterally.
--- NOTE | 2016-10-05 23:04 | Diagnostic Imaging Report ---
APPROVED REPORT CPT Code: 11955 Present Symptoms Comments: R/O DVT RIGHT LEG: Venous imaging reveals a patent deep venous system. There is no evidence of thrombus within the femoral, popliteal or tibial segments. The greater saphenous vein is also within normal limits. Doppler indicates normal spontaneous flow within these segments.
--- NOTE | 2016-10-05 23:09 | Diagnostic Imaging Report ---
APPROVED REPORT CPT Code: 11754 Present Symptoms Lower Extremity Pain: Left LEFT LEG: Venous imaging reveals a patent deep venous system. There is no evidence of thrombus within the femoral, popliteal or tibial segments. The greater saphenous vein is also within normal limits. Doppler indicates normal spontaneous flow within these segments. INCIDENTAL FINDING: VENOUS INSUFFIECIENCY: Imaging reveals venous insufficiency in the greater saphenous vein at the proximal thigh level to below the knee level. Reflux lasted longer than 0.5 seconds.
--- NOTE | 2016-10-05 23:53 | Cardiology Progress Note ---
Assessment/Plan Assessment/Plan 1. Sinus tachycardia, treat the underlying etiology, will start Dyazide. 2. HTN 3. DM, require ASA and statin, no evidence of PVD. Subjective Subjective Denies chest pain or SOB. Not on the telemetry unit. Objective Last 24 Hour Vital Signs Date Time Temp Pulse Resp B/P Pulse Ox O2 Delivery O2 Flow Rate FiO2 10/05/16 20:00 98.1 106 20 150/76 96 Room Air 10/05/16 19:35 95 18 98 Room Air 21 10/05/16 19:16 97 20 94 Room Air 21 10/05/16 19:15 97 20 Room Air 21 10/05/16 17:30 149/62 10/05/16 15:59 98.0 107 20 160/75 96 Room Air 10/05/16 13:47 80 20 99 Room Air 21 10/05/16 13:37 76 20 96 Room Air 21 10/05/16 12:18 98.4 101 20 137/86 100 Room Air 10/05/16 08:50 90 156/84 10/05/16 08:17 98.0 90 20 156/84 100 Room Air 10/05/16 07:30 79 20 99 Room Air 21 10/05/16 07:20 77 20 Room Air 21 10/05/16 07:20 77 20 96 Room Air 21 10/05/16 03:51 97.4 80 19 129/61 96 Room Air 10/05/16 01:29 80 20 99 Room Air 21 10/05/16 01:28 76 20 98 Room Air 21 Intake and Output 10/04/16 10/05/16 19:00 07:00 Intake Total 1100.0 ml 350 ml Output Total 1000 ml 1600 ml Balance 100.0 ml -1250 ml Intake Oral 720 ml 350 ml IV Total 380.0 ml Output Urine Total 1000 ml 1600 ml Laboratory Tests Test 10/05/16 04:50 10/05/16 16:10 White Blood Count 7.0 K/UL (4.8-10.8) Red Blood Count 4.37 M/UL (4.20-5.40) Hemoglobin 12.4 G/DL (12.0-16.0) Hematocrit 38.3 % (37.0-47.0) Mean Corpuscular Volume 87 FL (80-99) Mean Corpuscular Hemoglobin 28.2 PG (27.0-31.0) Mean Corpuscular Hemoglobin Concent 32.3 G/DL (32.0-36.0) Red Cell Distribution Width 12.2 % (11.6-14.8) Platelet Count 313 K/UL (150-450) Mean Platelet Volume 5.8 FL (6.5-10.1) L Neutrophils (%) (Auto) 54.1 % (45.0-75.0) Lymphocytes (%) (Auto) 26.0 % (20.0-45.0) Monocytes (%) (Auto) 9.5 % (1.0-10.0) Eosinophils (%) (Auto) 9.0 % (0.0-3.0) H Basophils (%) (Auto) 1.4 % (0.0-2.0) Sodium Level 135 mEQ/L (135-145) Potassium Level 4.1 mEQ/L (3.4-4.9) Chloride Level 95 mEQ/L (98-107) L Carbon Dioxide Level 24 mEQ/L (20-30) Anion Gap 16 (5-15) H Blood Urea Nitrogen 26 mg/dL (7-23) H Creatinine 1.5 mg/dL (0.5-0.9) H Estimat Glomerular Filtration Rate mL/min (>60) Glucose Level 180 mg/dL (74-106) H Calcium Level 8.9 mg/dL (8.6-10.2) Vancomycin Level Trough 18.5 ug/mL (5.0-12.0) H Microbiology Date/Time Source Procedure Growth Status 10/03/16 10:25 Blood Blood Culture - Preliminary NO GROWTH AFTER 24 HOURS Resulted 10/03/16 10:20 Blood Blood Culture - Preliminary NO GROWTH AFTER 24 HOURS Resulted 10/04/16 10:35 Sputum Gram Stain - Final Resulted 10/04/16 10:35 Sputum Sputum Culture - Preliminary NORMAL UPPER RESPIRATORY LITA AT 24 ... Resulted 10/03/16 12:55 Nasal Nares MRSA Culture - Final NO METHICILLIN RESISTANT STAPH AUREUS... Complete 10/03/16 16:20 Urine,Clean Catch Urine Culture - Final Escherichia Coli Complete 10/03/16 12:55 Rectum VRE Culture - Final NO VANCOMYCIN RESISTANT ENTEROCOCCUS ... Complete Objective HEENT: Normocephalic and atraumatic. Pupils are reactive to light equally. Pale sclerae. Dry oral mucosa. No exudate. NECK: Supple. No lymphadenopathy. CARDIOVASCULAR: Regular rate and rhythm. No murmur or gallop. LUNGS: She had diminished breathing sound on the bases with crackles on the left lower lobe. ABDOMEN: Soft, nontender, and nondistended. Positive bowel sounds. Obese. No organomegaly. EXTREMITIES: No edema or cyanosis. Purple discoloration with ecchymosis of the left big toe in the left front foot. No gangrenous changes or ulceration. Pulse is palpable in the distal pedal area, +1 in both feet. ARIELLA CHASE Oct 05, 2016 23:53
[2016-10-06] VITALS (7 sets, daily range): BP systolic 129–163; BP diastolic 58–104
[2016-10-06] MEDS: DuoNeb 0.5-3(2.5)mg/3ml neb HHN SCH ×4 (01:16→19:00)
[2016-10-06] MEDS: NovoLOG Insulin Flexpen SUBQ SCH ×4 (05:42→20:44)
[2016-10-06 06:01] LABS: BASOPHILS % (AUTO) 1.6 % (0.0-2.0); EOSINOPHILS % (AUTO) 8.6 % (0.0-3.0); LYMPHOCYTES % (AUTO) 17.8 % (20.0-45.0); MEAN CORPUSCULAR HEMOGLOBIN 28.2 PG (27.0-31.0); MEAN CORPUSCULAR HGB CONC 32.3 G/DL (32.0-36.0); MEAN CORPUSCULAR VOLUME 87 FL (80-99); MEAN PLATELET VOLUME 5.8 FL (6.5-10.1); MONOCYTES % (AUTO) 9.4 % (1.0-10.0); NEUTROPHILS % (AUTO) 62.6 % (45.0-75.0); PLATELET COUNT 317 K/UL (150-450); RED BLOOD COUNT 4.19 M/UL (4.20-5.40); RED CELL DISTRIBUTION WIDTH 12.2 % (11.6-14.8); WHITE BLOOD COUNT 8.1 K/UL (4.8-10.8)
[2016-10-06 06:25] LABS: ANION GAP 11 (5-15); CARBON DIOXIDE 26 mEQ/L (20-30); CHLORIDE 99 mEQ/L (98-107); CREATININE 1.4 mg/dL (0.5-0.9); HEMOLYSIS 6; POTASSIUM 4.3 mEQ/L (3.4-4.9); SODIUM 136 mEQ/L (135-145)
[2016-10-06] MEDS: Aspirin EC 81mg tab ORAL SCH (08:33)
[2016-10-06] MEDS: Heparin 5000 units/ml inj SUBQ SCH ×2 (08:39→20:48)
[2016-10-06] MEDS ORDERED: Triamterene/Hctz 37.5/25 cap ORAL SCH (09:00)
--- NOTE | 2016-10-06 09:48 | Cardiology Report ---
APPROVED REPORT EKG Measurement Heart [id number] CA [id number] [id number] Normal sinus rhythm with sinus arrhythmia Left axis deviation Right bundle branch block Possible Lateral infarct, age undetermined Abnormal ECG
--- NOTE | 2016-10-06 11:41 | General Progress Note ---
Assessment/Plan Problem List: (1) Toe gangrene ICD Codes: I96 - Gangrene, not elsewhere classified SNOMED: 328288094 (2) YUDY (acute kidney injury) ICD Codes: N17.9 - Acute kidney failure, unspecified SNOMED: 33804928 (3) LLL pneumonia ICD Codes: J18.1 - Lobar pneumonia, unspecified organism SNOMED: 728090060 (4) Traumatic ecchymosis of toe of right foot ICD Codes: S90.121A - Contusion of right lesser toe(s) without damage to nail, initial encounter SNOMED: 76761268 (5) UTI (urinary tract infection) ICD Codes: N39.0 - Urinary tract infection, site not specified SNOMED: 83572808 Status: stable, progressing, tolerating diet Assessment/Plan ot pt diet wound care abx promise ltach transfer Subjective Constitutional: Reports: weakness Allergies: Coded Allergies: No Known Allergies (Unverified , 10/03/16) All Systems: reviewed and negative except above Subjective calm in bed Objective Last 24 Hour Vital Signs Date Time Temp Pulse Resp B/P Pulse Ox O2 Delivery O2 Flow Rate FiO2 10/06/16 08:33 107 146/104 10/06/16 08:33 107 146/104 10/06/16 08:17 98.0 107 20 146/104 98 Room Air 10/06/16 07:53 97 20 99 Room Air 10/06/16 07:43 98 20 96 Room Air 10/06/16 04:00 97.2 88 20 129/90 96 10/06/16 01:34 92 18 98 Room Air 10/06/16 01:17 82 20 93 Room Air 10/06/16 00:00 97.9 88 18 138/98 94 Room Air 10/05/16 20:00 98.1 106 20 150/76 96 Room Air 10/05/16 19:35 95 18 98 Room Air 21 10/05/16 19:16 97 20 94 Room Air 21 10/05/16 19:15 97 20 Room Air 21 10/05/16 17:30 149/62 10/05/16 15:59 98.0 107 20 160/75 96 Room Air 10/05/16 13:47 80 20 99 Room Air 10/05/16 13:37 76 20 96 Room Air 21 10/05/16 12:18 98.4 101 20 137/86 100 Room Air Intake and Output 10/05/16 10/06/16 19:00 07:00 Intake Total 1177.5 ml 282.5 ml Output Total 1500 ml 1800 ml Balance -322.5 ml -1517.5 ml Intake Oral 960 ml 120 ml IV Total 217.5 ml 162.5 ml Output Urine Total 1500 ml 1800 ml Laboratory Tests 10/05/16 16:10: Vancomycin Level Trough 18.5H 10/06/16 05:05: White Blood Count 8.1, Red Blood Count 4.19L, Hemoglobin 11.8L, Hematocrit 36.6L , Mean Corpuscular Volume 87, Mean Corpuscular Hemoglobin 28.2, Mean Corpuscular Hemoglobin Concent 32.3, Red Cell Distribution Width 12.2, Platelet Count 317, Mean Platelet Volume 5.8L, Neutrophils (%) (Auto) 62.6, Lymphocytes ( %) (Auto) 17.8L, Monocytes (%) (Auto) 9.4, Eosinophils (%) (Auto) 8.6H, Basophils (%) (Auto) 1.6, Sodium Level 136, Potassium Level 4.3, Chloride Level 99, Carbon Dioxide Level 26, Anion Gap 11, Blood Urea Nitrogen 26H, Creatinine 1.4H, Estimat Glomerular Filtration Rate , Glucose Level 199H, Calcium Level 9.0 Height (Feet): 5 Height (Inches): 4.00 Weight (Pounds): 200 General Appearance: lethargic EENT: normal ENT inspection Neck: normal alignment Cardiovascular: normal peripheral pulses, normal rate, regular rhythm Respiratory/Chest: chest wall non-tender, lungs clear, normal breath sounds Abdomen: normal bowel sounds, non tender, soft Extremities: normal inspection Edema: no edema noted Arm (L), no edema noted Arm (R), no edema noted Leg (L), no edema noted Leg (R), no edema noted Pedal (L), no edema noted Pedal (R), no edema noted Generalized Neurologic: motor weakness Skin: normal pigmentation, warm/dry KENDY MUELLER Oct 06, 2016 11:41
[2016-10-06] MEDS: Cefepime HCl 1 GM in D5W 55 ML IV SCH (15:15)
--- NOTE | 2016-10-06 15:36 | Infectious Diseases Prog Note ---
Assessment/Plan Problems: (1) LLL pneumonia Assessment & Plan: continue vancomycin and cefepime for 7 days , monitor CXR (2) YUDY (acute kidney injury) Assessment & Plan: continue fluids for hydration, monitor UOP, avoid nephrotoxic meds, consult renal service (3) Traumatic ecchymosis of toe of right foot Assessment & Plan: had X ray with no evidence of fracture , consult physician executive , recommend arterial doppler (4) UTI (urinary tract infection) Assessment & Plan: with E coli , already on cefepime for 7 days Subjective ROS Limited/Unobtainable: Yes Allergies: Coded Allergies: No Known Allergies (Unverified , 10/03/16) Subjective she is demented, up in bed, awake not in distress. Objective Vital Signs Last 24 Hour Vital Signs Date Time Temp Pulse Resp B/P Pulse Ox O2 Delivery O2 Flow Rate FiO2 10/06/16 14:18 84 20 100 Room Air 10/06/16 14:08 87 20 94 Room Air 10/06/16 11:46 98.2 88 20 157/78 98 Room Air 10/06/16 08:33 107 146/104 10/06/16 08:33 107 146/104 10/06/16 08:17 98.0 107 20 146/104 98 Room Air 10/06/16 07:53 97 20 99 Room Air 10/06/16 07:43 98 20 96 Room Air 10/06/16 04:00 97.2 88 20 129/90 96 10/06/16 01:34 92 18 98 Room Air 21 10/06/16 01:17 82 20 93 Room Air 21 10/06/16 00:00 97.9 88 18 138/98 94 Room Air 10/05/16 20:00 98.1 106 20 150/76 96 Room Air 10/05/16 19:35 95 18 98 Room Air 21 10/05/16 19:16 97 20 94 Room Air 21 10/05/16 19:15 97 20 Room Air 21 10/05/16 17:30 149/62 10/05/16 15:59 98.0 107 20 160/75 96 Room Air Height (Feet): 5 Height (Inches): 4.00 Weight (Pounds): 200 General Appearance: WD/WN, no acute distress HEENT: normocephalic, atraumatic, anicteric, mucous membranes moist Respiratory/Chest: chest wall non-tender, no respiratory distress, no accessory muscle use, decreased breath sounds, crackles/rales Cardiovascular: normal peripheral pulses, normal rate, regular rhythm, no gallop/murmur, no JVD Abdomen: normal bowel sounds, soft, non tender, no organomegaly, non distended , no mass, no scars Extremities: no cyanosis, no clubbing Microbiology Date/Time Source Procedure Growth Status 10/04/16 10:35 Sputum Gram Stain - Final Complete 10/04/16 10:35 Sputum Sputum Culture - Final NORMAL UPPER RESPIRATORY LITA PRESENT Complete 10/03/16 16:20 Urine,Clean Catch Urine Culture - Final Escherichia Coli Complete Laboratory Tests Test 10/05/16 16:10 10/06/16 05:05 Vancomycin Level Trough 18.5 ug/mL (5.0-12.0) H White Blood Count 8.1 K/UL (4.8-10.8) Red Blood Count 4.19 M/UL (4.20-5.40) L Hemoglobin 11.8 G/DL (12.0-16.0) L Hematocrit 36.6 % (37.0-47.0) L Mean Corpuscular Volume 87 FL (80-99) Mean Corpuscular Hemoglobin 28.2 PG (27.0-31.0) Mean Corpuscular Hemoglobin Concent 32.3 G/DL (32.0-36.0) Red Cell Distribution Width 12.2 % (11.6-14.8) Platelet Count 317 K/UL (150-450) Mean Platelet Volume 5.8 FL (6.5-10.1) L Neutrophils (%) (Auto) 62.6 % (45.0-75.0) Lymphocytes (%) (Auto) 17.8 % (20.0-45.0) L Monocytes (%) (Auto) 9.4 % (1.0-10.0) Eosinophils (%) (Auto) 8.6 % (0.0-3.0) H Basophils (%) (Auto) 1.6 % (0.0-2.0) Sodium Level 136 mEQ/L (135-145) Potassium Level 4.3 mEQ/L (3.4-4.9) Chloride Level 99 mEQ/L (98-107) Carbon Dioxide Level 26 mEQ/L (20-30) Anion Gap 11 (5-15) Blood Urea Nitrogen 26 mg/dL (7-23) H Creatinine 1.4 mg/dL (0.5-0.9) H Estimat Glomerular Filtration Rate mL/min (>60) Glucose Level 199 mg/dL (74-106) H Calcium Level 9.0 mg/dL (8.6-10.2) Current Medications Medications (Trade) Dose Ordered Sig/Eunice Route PRN Reason Start Time Stop Time Status Last Admin Dose Admin Acetaminophen (Tylenol) 650 mg Q4H PRN ORAL fever 10/03/16 14:00 11/02/16 13:59 Al Hydroxide/Mg Hydroxide (Mylanta II) 30 ml Q6H PRN ORAL dyspepsia 10/03/16 14:00 11/02/16 13:59 Albuterol/ Ipratropium (DuoNeb 0.5-3(2.5)mg/3ml) 3 ml Q6HRT HHN 10/03/16 19:00 10/08/16 18:59 10/06/16 14:16 Amlodipine Besylate (Norvasc) 10 mg DAILY ORAL 10/04/16 09:00 11/03/16 08:59 10/06/16 08:33 Aspirin (Ecotrin) 81 mg DAILY ORAL 10/04/16 09:00 11/03/16 08:59 10/06/16 08:33 Atorvastatin Calcium (Lipitor) 40 mg BEDTIME ORAL 10/06/16 21:00 11/05/16 20:59 Bisacodyl (Dulcolax) 10 mg DAILY PRN RECTAL Constipation 10/04/16 09:00 11/03/16 08:59 Cefepime HCl/ Dextrose (Maxipime/D5W) 55 ml @ 110 mls/hr Q24H IV 10/03/16 16:00 10/10/16 15:59 10/06/16 15:15 Clonidine HCl (Catapres) 0.1 mg EVERY 8 HOURS PRN ORAL SBP>160 10/03/16 14:00 11/02/16 13:59 10/03/16 22:46 Clopidogrel Bisulfate (Plavix) 75 mg DAILY ORAL 10/04/16 09:00 11/03/16 08:59 10/06/16 08:32 Dextrose STAT PRN IV Hypoglycemia 10/03/16 14:00 11/02/16 13:59 Donepezil HCl (Aricept) 10 mg QHS ORAL 10/03/16 21:00 11/02/16 20:59 10/05/16 20:18 Heparin Sodium (Porcine) (Heparin 5000 units/ml) 5,000 units EVERY 12 HOURS SUBQ 10/03/16 21:00 11/02/16 20:59 10/06/16 08:39 Insulin Aspart (NovoLOG) BEFORE MEALS AND HS SUBQ 10/03/16 16:30 11/02/16 16:29 10/06/16 12:12 Lorazepam (Ativan 2mg/ml 1ml) 0.5 mg Q4H PRN IV For Anxiety 10/03/16 14:00 10/10/16 13:59 Metoprolol Succinate (Toprol XL) 25 mg DAILY ORAL 10/06/16 09:00 11/05/16 08:59 10/06/16 08:33 Morphine Sulfate (Morphine Sulfate) 1 mg EVERY 4 HOURS PRN IVP For Pain 10/03/16 14:00 10/10/16 13:59 10/04/16 20:16 Olanzapine (ZyPREXA) 1.25 mg DAILY PRN ORAL Schizophrenia 10/03/16 14:00 11/02/16 13:59 10/06/16 08:32 Ondansetron HCl (Zofran) 4 mg Q6H PRN IVP Nausea & Vomiting 10/03/16 14:00 11/02/16 13:59 Polyethylene Glycol (Miralax) 17 gm HSPRN PRN ORAL Constipation 10/03/16 14:00 11/02/16 13:59 Promethazine HCl/ Codeine (Phenergan with Codeine) 5 ml Q4H PRN ORAL For Cough 10/03/16 14:00 11/02/16 13:59 Triamterene/HCTZ (Dyazide) 1 cap DAILY ORAL 10/06/16 09:00 11/05/16 08:59 10/06/16 12:03 Vancomycin HCl 1 ea 1 ea DAILY PRN MISC Per rx protocol 10/03/16 14:00 11/02/16 13:59 Vancomycin HCl/ Dextrose (Vancomycin/D5W) 325 ml @ 162.5 mls/ hr QHS IVPB 10/06/16 21:00 10/11/16 20:59 Zolpidem Tartrate (Ambien) 5 mg HSPRN PRN ORAL Insomnia 10/03/16 14:00 11/02/16 13:59 Ryne Vieira M.D. Oct 06, 2016 15:36
--- NOTE | 2016-10-06 16:28 | Consultation ---
DATE OF CONSULTATION: NOTE: POOR AUDIO QUALITY TREATING ATTENDING: Alverto Haddad D.O. HISTORY OF PRESENT ILLNESS: The patient is a 86-year-old female patient. [facility]. She was admitted to the hospital for cellulitis. The patient denies any history of weakness or encephalopathy, continue altered mental status, . PAST MEDICAL HISTORY: Includes a history of hypercholesterolemia, confusion, hypertension, and diabetes. ALLERGIES: The patient has no known drug allergies. SUBSTANCE USE HISTORY: , alcohol use, illicit substance use, or smoking cigarettes. PSYCHIATRIC HISTORY: The patient has a history of confusion psychotropic medications in the past. SOCIAL HISTORY: The patient is an 86-year-old female . Financially sustained through [employer] and [employer]. MENTAL STATUS EXAMINATION: The patient is alert and oriented to person. Mood is depressed. Affect is blunted. Thought process is disorganized. The patient has poor attention and concentration. Poor insight, judgment, and impulse control. . DIAGNOSES: AXIS I: Paranoid schizophrenia. AXIS II: Deferred. AXIS III: Per History and Physical. AXIS IV: Problems with social environment. PLAN: This clinician will continue to monitor the patient therapy and reality orientation. The patient . Continue her medication management and behavioral management. This clinician has reviewed the patient's chart and discussed the treatment with nursing staff. Dale Ba PsyD. DR: MAJOR JOB#: [id number] CC:
[2016-10-06] MEDS ORDERED: NORVASC10 MG ORAL (19:50)
[2016-10-06] MEDS ORDERED: CEFEPIME-D1 GM/50 ML IVPB ×2 (19:50→19:51)
[2016-10-06] MEDS ORDERED: PROMETHAZINE-C118 M1 ORAL (19:53)
[2016-10-06] MEDS ORDERED: HEPARIN SO5000 UNIT2 SUBQ (19:54)
[2016-10-06] MEDS ORDERED: LORAZEPAM2 MG/1 M3 IV (19:55)
[2016-10-06] MEDS ORDERED: METOPROLOL SUCC25 MG ORAL (19:56)
[2016-10-06] MEDS ORDERED: MORPHINE 22 MG/1 ML IV (19:57)
[2016-10-06] MEDS ORDERED: OLANZAPINE2.5 MG ORAL (20:01)
[2016-10-06] MEDS ORDERED: ONDANSETRON4 MG/2 M2 IVP (20:02)
[2016-10-06] MEDS ORDERED: VANCOMYCIN1 GM/2502 IVPB (20:02)
[2016-10-06] MEDS ORDERED: ZOFRAN4 MG/5 ML ORAL (20:02)
[2016-10-06] MEDS ORDERED: DYAZIDE 37.5-21 EACH PO (20:03)
[2016-10-06] MEDS ORDERED: AMBIEN5 M1 PO (20:04)
[2016-10-06] MEDS ORDERED: MIRALAX17 G2 ORAL (20:05)
[2016-10-06] MEDS ORDERED: ZYPREXA2.5 MG ORAL (20:12)
[2016-10-06] MEDS: Donepezil 10mg tab ORAL SCH (20:43)
[2016-10-06] MEDS ORDERED: VANCOMYCIN IVPB SCH (21:00)
[2016-10-06] MEDS ORDERED: D5W IVPB SCH (21:00)
--- NOTE | 2016-10-06 22:10 | Pulmonology Progress Note ---
Assessment/Plan Problems: (1) LLL pneumonia (2) UTI (urinary tract infection) (3) Traumatic ecchymosis of toe of right foot (4) Hypertension (5) Diabetes mellitus (6) Dementia Assessment/Plan continue abx check cultures, chest pt venous doppler noted all labs, meds, notes revewed continue the same Subjective Allergies: Coded Allergies: No Known Allergies (Unverified , 10/03/16) Objective Last 24 Hour Vital Signs Date Time Temp Pulse Resp B/P Pulse Ox O2 Delivery O2 Flow Rate FiO2 10/06/16 19:07 Room Air 21 10/06/16 19:06 Room Air 21 10/06/16 17:06 97.5 78 20 142/72 99 Room Air 10/06/16 16:23 163/58 10/06/16 16:03 98.0 84 20 163/58 98 Room Air 10/06/16 14:18 84 20 100 Room Air 10/06/16 14:08 87 20 94 Room Air 10/06/16 11:46 98.2 88 20 157/78 98 Room Air 10/06/16 08:33 107 146/104 10/06/16 08:33 107 146/104 10/06/16 08:17 98.0 107 20 146/104 98 Room Air 10/06/16 07:53 97 20 99 Room Air 10/06/16 07:43 98 20 96 Room Air 10/06/16 04:00 97.2 88 20 129/90 96 10/06/16 01:34 92 18 98 Room Air 21 10/06/16 01:17 82 20 93 Room Air 21 10/06/16 00:00 97.9 88 18 138/98 94 Room Air Intake and Output 10/05/16 10/06/16 19:00 07:00 Intake Total 1177.5 ml 282.5 ml Output Total 1500 ml 1800 ml Balance -322.5 ml -1517.5 ml Intake Oral 960 ml 120 ml IV Total 217.5 ml 162.5 ml Output Urine Total 1500 ml 1800 ml Objective General Appearance: WD/WN HEENT: normocephalic Respiratory/Chest: chest wall non-tender, lungs clear Cardiovascular: normal peripheral pulses, normal rate Abdomen: normal bowel sounds Genitourinary: normal external genitalia Ext: no c/c/e Microbiology Date/Time Source Procedure Growth Status 10/04/16 10:35 Sputum Gram Stain - Final Complete 10/04/16 10:35 Sputum Sputum Culture - Final NORMAL UPPER RESPIRATORY LITA PRESENT Complete Laboratory Tests 10/06/16 05:05: White Blood Count 8.1, Red Blood Count 4.19L, Hemoglobin 11.8L, Hematocrit 36.6L , Mean Corpuscular Volume 87, Mean Corpuscular Hemoglobin 28.2, Mean Corpuscular Hemoglobin Concent 32.3, Red Cell Distribution Width 12.2, Platelet Count 317, Mean Platelet Volume 5.8L, Neutrophils (%) (Auto) 62.6, Lymphocytes ( %) (Auto) 17.8L, Monocytes (%) (Auto) 9.4, Eosinophils (%) (Auto) 8.6H, Basophils (%) (Auto) 1.6, Sodium Level 136, Potassium Level 4.3, Chloride Level 99, Carbon Dioxide Level 26, Anion Gap 11, Blood Urea Nitrogen 26H, Creatinine 1.4H, Estimat Glomerular Filtration Rate , Glucose Level 199H, Calcium Level 9.0 Current Medications Medications (Trade) Dose Ordered Sig/Eunice Route PRN Reason Start Time Stop Time Status Last Admin Dose Admin Acetaminophen (Tylenol) 650 mg Q4H PRN ORAL fever 10/03/16 14:00 11/02/16 13:59 Al Hydroxide/Mg Hydroxide (Mylanta II) 30 ml Q6H PRN ORAL dyspepsia 10/03/16 14:00 11/02/16 13:59 Albuterol/ Ipratropium (DuoNeb 0.5-3(2.5)mg/3ml) 3 ml Q6HRT HHN 10/03/16 19:00 10/08/16 18:59 10/06/16 14:16 Amlodipine Besylate (Norvasc) 10 mg DAILY ORAL 10/04/16 09:00 11/03/16 08:59 10/06/16 08:33 Aspirin (Ecotrin) 81 mg DAILY ORAL 10/04/16 09:00 11/03/16 08:59 10/06/16 08:33 Atorvastatin Calcium (Lipitor) 40 mg BEDTIME ORAL 10/06/16 21:00 11/05/16 20:59 10/06/16 20:43 Bisacodyl (Dulcolax) 10 mg DAILY PRN RECTAL Constipation 10/04/16 09:00 11/03/16 08:59 Cefepime HCl/ Dextrose (Maxipime/D5W) 55 ml @ 110 mls/hr Q24H IV 10/03/16 16:00 10/10/16 15:59 10/06/16 15:15 Clonidine HCl (Catapres) 0.1 mg EVERY 8 HOURS PRN ORAL SBP>160 10/03/16 14:00 11/02/16 13:59 10/06/16 16:23 Clopidogrel Bisulfate (Plavix) 75 mg DAILY ORAL 10/04/16 09:00 11/03/16 08:59 10/06/16 08:32 Dextrose STAT PRN IV Hypoglycemia 10/03/16 14:00 11/02/16 13:59 Donepezil HCl (Aricept) 10 mg QHS ORAL 10/03/16 21:00 11/02/16 20:59 10/06/16 20:43 Heparin Sodium (Porcine) (Heparin 5000 units/ml) 5,000 units EVERY 12 HOURS SUBQ 10/03/16 21:00 11/02/16 20:59 10/06/16 20:48 Insulin Aspart (NovoLOG) BEFORE MEALS AND HS SUBQ 10/03/16 16:30 11/02/16 16:29 10/06/16 20:44 Lorazepam (Ativan 2mg/ml 1ml) 0.5 mg Q4H PRN IV For Anxiety 10/03/16 14:00 10/10/16 13:59 Metoprolol Succinate (Toprol XL) 25 mg DAILY ORAL 10/06/16 09:00 11/05/16 08:59 10/06/16 08:33 Morphine Sulfate (Morphine Sulfate) 1 mg EVERY 4 HOURS PRN IVP For Pain 10/03/16 14:00 10/10/16 13:59 10/04/16 20:16 Olanzapine (ZyPREXA) 1.25 mg DAILY PRN ORAL Schizophrenia 10/03/16 14:00 11/02/16 13:59 10/06/16 08:32 Ondansetron HCl (Zofran) 4 mg Q6H PRN IVP Nausea & Vomiting 10/03/16 14:00 11/02/16 13:59 Polyethylene Glycol (Miralax) 17 gm HSPRN PRN ORAL Constipation 10/03/16 14:00 11/02/16 13:59 Promethazine HCl/ Codeine (Phenergan with Codeine) 5 ml Q4H PRN ORAL For Cough 10/03/16 14:00 11/02/16 13:59 Triamterene/HCTZ (Dyazide) 1 cap DAILY ORAL 10/06/16 09:00 11/05/16 08:59 10/06/16 12:03 Vancomycin HCl 1 ea 1 ea DAILY PRN MISC Per rx protocol 10/03/16 14:00 11/02/16 13:59 Vancomycin HCl/ Dextrose (Vancomycin/D5W) 325 ml @ 162.5 mls/ hr QHS IVPB 10/06/16 21:00 10/11/16 20:59 Zolpidem Tartrate (Ambien) 5 mg HSPRN PRN ORAL Insomnia 10/03/16 14:00 11/02/16 13:59 MINAL FREEMAN Oct 06, 2016 22:10
[2016-10-06] MEDS ORDERED: NS 275ml ONE (22:19)
[2016-10-06] MEDS ORDERED: Tubing IV Secondary IV ONE (22:19)
--- NOTE | 2016-10-07 10:08 | Progress Note ---
DATE: 10/06/2016 NOTE: "VERY POOR AUDIO QUALITY/INCOMPREHENSIBLE" PSYCHOTHERAPY CONSULTATION PROGRESS NOTE CONSULTING PHYSICIAN: Dale Ba M.D. TREATING ATTENDING PHYSICIAN: Alverto Haddad M.D. HISTORY OF PRESENT ILLNESS: The patient is an 86-year-old female and depression. The patient denies suicidal and homicidal thoughts of ideations. The patient denies . The patient . This clinician has assessed the patient and provided the patient with his supportive psychotherapy and cognitive behavioral interventions, and coping skills. Dale Ba PsyD. DR: Karmen JOB#: [id number] CC:
--- NOTE | 2016-10-09 09:24 | Discharge Summary ---
Discharge Summary Hospital Course Date of Admission Oct 03, 2016 at 10:53 Date of Discharge Oct 06, 2016 at 22:20 Admitting Diagnosis CELLULITIS HPI Nika Curry is a 86 year old female who was admitted on Oct 03, 2016 at 10: 53 for Cellulitis Hospital Course dc summary #[id number] Discharge Medications Continued Medications: Amlodipine Besylate (Norvasc) 10 Mg Tablet 10 MG ORAL DAILY, TAB Aspirin* (Aspir 81*) 81 Mg Tablet.dr 81 MG ORAL DAILY, TAB Atorvastatin Calcium* (Lipitor*) 10 Mg Tablet 10 MG ORAL BEDTIME, TAB Bisacodyl (Dulcolax) 10 Mg Supp.rect 10 MG RC, SUPP Clonidine Hcl* (Catapres*) 0.1 Mg Tablet 0.1 MG ORAL EVERY 8 HOURS PRN for For High Blood Pressure, TAB Clopidogrel Bisulfate* (Plavix*) 75 Mg Tablet 75 MG ORAL q 5 pm for DVT, TAB Codeine/Promethazine Hcl* (Promethazine-Codeine Syrup*) 118 Ml Syrup 5 ML ORAL Q4H PRN for For Cough, ML 0 Refills Donepezil Hcl* (Donepezil Hcl*) 10 Mg Tab.rapdis 10 MG ORAL HS, TAB Heparin Sod (Porcine) (Heparin Sodium*) 5 000/1 Ml Vial 5000 UNITS SUBQ EVERY 12 HOURS, VIAL Mag Hydrox/Al Hydrox/Simeth (Alum-Mag Hydroxide-Simeth Liq) 360 Ml Oral.susp 30 ML PO PRN for gi upset, ML Metoprolol Succinate* (Metoprolol Succinate*) 25 Mg Tab.er.24h 25 MG ORAL DAILY, TAB Polyethylene Glycol 3350* (Miralax*) 17 Gm Powd.pack 17 GM ORAL DAILY for Constipation, PACKET Triamterene/Hydrochlorothiazid (Dyazide 37.5-25 Capsule) 1 Each Capsule 1 EACH PO, CAP Vancomycin Hcl/D5w (Vancomycin-D5w 1 G/250 Ml) 1 Gm/250 Ml Plast..bag 1.25 GM IVPB Q24H, BAG Zolpidem Tartrate (Ambien) 5 Mg Tablet 5 MG PO for insomnia, TAB Discontinued Medications: Cefepime Hcl/D5w (Cefepime-Dextrose 1 Gm/50 Ml) 1 Gm/50 Ml Piggyback 1 GM IVPB Q24H, BAG Cefepime Hcl/D5w (Cefepime-Dextrose 1 Gm/50 Ml) 1 Gm/50 Ml Piggyback 1 GM IVPB Q24H, BAG Lorazepam (Lorazepam) 2 Mg/1 Ml Syringe 0.5 MG IV Q4H, EA Morphine Sulfate* (Morphine Sulfate*) 2 Mg/1 Ml Cartridge 1 MG IV Q4HR PRN for Pain Scale (6-10), EA Ondansetron* (Zofran 4 Mg/2 Ml Vial*) 4 Mg/2 Ml Vial 4 MG IVP Q6H, VIAL Discharge Condition Upon Discharge: stable Discharge Disposition Patient was discharged to [facility] ([id number]) Discharge Diagnoses: Discharge Instructions Discharge Instructions Special Instructions I have been assigned to complete a D/C Summary on this account. I was not involved in the patient management Margaret Segura NP ([place]) Oct 09, 2016 09:23
--- NOTE | 2016-10-10 04:48 | Discharge Summary 2 SIG ---
DATE OF ADMISSION: 10/03/2016 DATE OF DISCHARGE: 10/06/2016 REASON FOR ADMISSION: The patient is an 86-year-old female, who was [facility] from the correction facility with left big toe discoloration and known history of trauma versus fall. The patient has Alzheimer dementia and paranoid schizophrenia and unable to provide any additional history. Workup in the emergency room revealed evidence of acute kidney injury with BUN of 26 and creatinine of 1.4. Chest x-ray with left lower lobe infiltrate. Urinalysis evidence of UTI. EKG shows normal sinus rhythm. No PVC. No ectopy. The patient was admitted for further management. ADMITTING DIAGNOSES: Include, 1. Left lower lobe pneumonia. 2. Urinary tract infection. 3. Acute kidney injury. 4. Left foot contusion. HOSPITAL STAY: The patient was admitted. The patient was pancultured and was started on empiric antibiotics. ID follow. Antibiotic regimen was optimized based on sensitivity. Urine culture positive for E coli. Sputum culture was negative. The patient status post treatment for cefepime and needs additional treatment for vancomycin. Venous duplex of bilateral lower extremity was negative for acute DVT. Arterial duplex was negative for any evidence of arterial insufficiency. Podiatry consult was requested. Per podiatry, the patient has a left foot contusion. X-ray of the left foot revealed no acute bony trauma. No dislocation. No definite osteolytic lesion. The bones were osteoporotic. The joint spaces were well-preserved. No definite plain radiographic findings were found to suggest acute osteomyelitis. However, the plain radiographic showed limited sensitivity for such, particularly in the setting of osteoporotic changes. The patient was afebrile. No leukocytosis. The patient is on Plavix. Choir Member cleared for discharge from podiatry standpoint. The psychiatrist seen the patient for psychiatric issues. Blood sugar was managed with sliding scale of insulin. Hemoglobin A1c was 7.9. Need further optimization of anti-glycemic regimen. Aspirin and statin were continued. Blood pressure was managed with Dyazide, which started per maintenance groundskeeper who has seen and evaluated the patient. Renal ultrasound revealed no evidence of hydronephrosis but showed increased echogenicity bilateral kidney consistent with chronic medical renal disease with IV hydration. Creatinine down to 1.4. The patient was arranged for transfer to [facility] for IV antibiotics. DISCHARGE DIAGNOSES: Include, 1. Left foot contusion. 2. Left lower lobe pneumonia. 3. Urinary tract infection. 4. Acute kidney injury on chronic kidney disease. 5. Alzheimer dementia. 6. Diabetes mellitus. 7. Hypertension. DISCHARGE MEDICATIONS: See medication reconciliation list. DISCHARGE INSTRUCTIONS: The patient was transferred to [facility] for IV antibiotics. FOLLOWUP: Follow up with medical doctor at the facility. Alverto Haddad D.O. I have been assigned to dictate discharge summary on this account and I was not involved in the patient's management. Margaret Velasqueznewark-wayne community hospitalphyllis NRussellPRussell DR: CLARA JOB#: [id number] CC:
== END 2016-10-06 22:20 | DRG 194 ==
LOC: EDBD 09:47 → EMR 10:40 → 4W 10:53 → EDBEDREQ 12:43
DX: J18.9 Pneumonia, unspecified organism (principal); N17.9 Acute kidney failure, unspecified; N39.0 Urinary tract infection, site not specified; G30.9 Alzheimer's disease, unspecified; E86.0 Dehydration; E11.9 Type 2 diabetes mellitus without complications; B96.20 Unspecified Escherichia coli [E. coli] as the cause of diseases classified elsewhere; I12.9 Hypertensive chronic kidney disease with stage 1 through stage 4 chronic kidney disease, or unspecified chronic kidney disease; F02.80 Dementia in other diseases classified elsewhere, unspecified severity, without behavioral disturbance, psychotic disturbance, mood disturbance, and anxiety; F20.0 Paranoid schizophrenia; S90.32XA Contusion of left foot, initial encounter; W19.XXXA Unspecified fall, initial encounter; N18.9 Chronic kidney disease, unspecified; K21.9 Gastro-esophageal reflux disease without esophagitis; E78.00 Pure hypercholesterolemia, unspecified; R00.0 Tachycardia, unspecified
CPT/HCPCS: 36415; 71010; 76775; 80048; 80053; 80061; 80202; 81001; 82436; 82533; 82550; 82553; 82962; 83036; 83735; 83930; 83935; 84100; 84133; 84300; 84439; 84443; 84481; 84550; 85025; 87040; 87070; 87081; 87086; 87181; 87205; 89050; 93005; 93925; 93971; 94640; 94664; J1815; J7620